=== PATIENT | female | born 1960 | race Caucasian/White ===

== ENCOUNTER 2019-04-17 01:21 | Day surgery (SDC) | payer BC, SELFPAY ==
[2019-04-05 15:59] VITALS: BMI 27.3
[2019-04-17 13:21] VITALS: BP 178/92; PULSE 73; RESP 16; TEMP 36.3; O2SAT 100
--- NOTE | 2019-04-17 13:33 | WPDANESEPPF ---
Anes - Initial Pre Proc Eval Procedure: Operation Date: 04/17/19 14:15 Proposed Procedures p Colonoscopy - Live Hernadez MD Date/Time: 04/17/19 13:33 Surgeon: Live Hernadez MD Pre Op Diagnosis: Positive Colorectal Test Patient Data Age: 58 Gender: F Height: 1.6 m Weight: 71.4 kg Last Vital Signs Temp 36.3 C L 04/17/19 13:21 Pulse 73 04/17/19 13:21 Resp 16 04/17/19 13:21 BP 178/92 H 04/17/19 13:21 Pulse Ox 100 04/17/19 13:21 Allergies Allergy/AdvReac Type Severity Reaction Status Date / Time No Known Allergies Allergy Verified 04/17/19 13:20 Home Medications Medication Instructions Recorded Confirmed Type amlodipine 10 mg PO DAILY 04/05/19 04/05/19 History aspirin [Aspir-81] 81 mg PO DAILY 04/05/19 04/05/19 History losartan 100 mg PO DAILY 04/05/19 04/05/19 History metoprolol tartrate 50 mg PO BID 04/05/19 04/05/19 History vnsdpiqp-sin-svvljit fumarate 9 mg PO DAILY 04/05/19 04/05/19 History [Multi Vitamin] omeprazole 40 mg PO DAILY 04/05/19 04/05/19 History Patient hx anesthesia problems: none Family hx anesthesia problems: none PMFSH Past Medical History Medical History (Updated 04/17/19 @ 13:35 by Loy Flynn MD) CAD (coronary artery disease) Gastroesophageal reflux disease HTN (hypertension) Hypercholesterolemia Surgical History Surgical History (Updated 04/17/19 @ 13:35 by Loy Flynn MD) Hx of cholecystectomy Hx of coronary artery bypass graft x2 08/2018 Hx of tonsillectomy Hx of tubal ligation Family History Family History (Updated 11/01/18 @ 11:01 by DOCTOR UNKNOWN) Mother Cerebrovascular accident Sibling Cerebrovascular accident Grandparent Family history of malignant neoplasm Social History Social History Smoking status: Former smoker Smoking end date: 03/21/18 Anes - Eval Final PreProcedure Day of Procedure 04/17/19 13:33 Patient weight: overweight Heart: regular rate and rhythm Lungs: clear to auscultation and normal air movement Airway: Mallampati scale class II Neurological: alert and oriented Last oral intake: >/= 8 hours ASA classification: III Emergent: no Anesthetic plan: proceed Anesthesia type and monitoring: general GIVS Informed Consent: The patient's anesthetic plan and its attendant risks and benefits were discussed with the patient/family/POA. Questions were solicited and answers provided to the satisfaction of the patient/family/POA.
[2019-04-17] MEDS: LACTATED RINGERS 1,000 ML 150 ML IV CONT (13:38)
--- NOTE | 2019-04-17 15:11 | PM.HPGS ---
History of Present Illness History of Present Illness Consent: Risks, benefits, and alternatives have been discussed and questions answered. Patient agrees to proceed with procedure. Chief complaint: Positive Colorectal Test Narrative: Ciara Finch is a 58 year old female with abnormal cologuard, never had a colonoscopy Review of Systems Constitutional: Constitutional: Denies headache(s) and Denies weakness Eyes: Eyes: Denies blurry vision ENT: Reports Normal hearing present, Denies headache(s) and Denies neck pain Cardiovascular: Cardiovascular: Denies chest pain and Denies dyspnea Respiratory: Respiratory: Denies dyspnea Gastrointestinal: Gastrointestinal: Reports no additional gastrointestinal complaints Genitourinary: Genitourinary: Denies dysuria Musculoskeletal: Musculoskeletal: Denies neck pain Integumentary/Breasts: Skin/Breast: Denies dry skin Neurologic: Reports Normal hearing present, Denies headache(s) and Denies weakness Psychiatric: Psychiatric: Denies anxiety Endocrine: Endocrine: Denies change in body appearance Hematologic/Lymphatic: Hematologic/Lymphatic: Denies easy bleeding Allergic/Immunologic: Allergic/Immunologic: Denies urticaria PMFSH Past Medical History Medical History (Updated 04/17/19 @ 15:12 by Live Hernadez MD) CAD (coronary artery disease) Gastroesophageal reflux disease HTN (hypertension) Hypercholesterolemia Positive colorectal cancer screening using Cologuard test Surgical History Surgical History (Updated 04/17/19 @ 15:12 by Live Hernadez MD) Hx of cholecystectomy Hx of coronary artery bypass graft x2 08/2018 Hx of tonsillectomy Hx of tubal ligation Family History Family History (Updated 11/01/18 @ 11:01 by DOCTOR UNKNOWN) Mother Cerebrovascular accident Sibling Cerebrovascular accident Grandparent Family history of malignant neoplasm Social History Social History Smoking status: Former smoker Smoking end date: 03/21/18 Meds Home Medications and Allergies Home Medications Medication Instructions Recorded Confirmed Type amlodipine 10 mg PO DAILY 04/05/19 04/05/19 History aspirin [Aspir-81] 81 mg PO DAILY 04/05/19 04/05/19 History losartan 100 mg PO DAILY 04/05/19 04/05/19 History metoprolol tartrate 50 mg PO BID 04/05/19 04/05/19 History tvkpjqfw-gdj-yeaotpe fumarate 9 mg PO DAILY 04/05/19 04/05/19 History [Multi Vitamin] omeprazole 40 mg PO DAILY 04/05/19 04/05/19 History Allergies Allergy/AdvReac Type Severity Reaction Status Date / Time No Known Allergies Allergy Verified 04/17/19 13:20 Vital Signs Vital Signs - 24 hr 04/17/19 13:21 Temperature 97.3 F L Pulse Rate 73 Respiratory Rate 16 Blood Pressure 178/92 H Pulse Oximetry 100 Exam Const: General: comfortable and no acute distress HENMT: General nose exam: Normal nares present Eyes: General: appearance normal, both eyes and all related structures Neck: Neck: no JVD Resp: Auscultation: clear to auscultation bilaterally Cardio: Rate: regular rate Rhythm: regular rhythm GI: Inspection: non-distended GI Palp: Yes Soft to palpation Skin: General skin exam: normal color Neuro: General: gait normal Speech: normal speech Extrem: General: normal to inspection Psych: Mental Status: mental status grossly normal Assessment and Plan Assessment and plan (1) Positive colorectal cancer screening using Cologuard test: Code(s): R19.5 - Other fecal abnormalities Status: Acute Assessment and Plan: will proceed with colonoscopy (2) HTN (hypertension): Qualifiers: Hypertension type: essential hypertension Qualified Code(s): I10 - Essential (primary) hypertension Code(s): I10 - Essential (primary) hypertension Status: Acute (3) Hx of coronary artery bypass graft: Code(s): Z95.1 - Presence of aortocoronary bypass graft Status: Acute
[2019-04-17 15:36] VITALS: BP 120/61; PULSE 74; RESP 16; O2SAT 98
[2019-04-17 15:46] VITALS: BP 146/73; PULSE 70; RESP 16; O2SAT 98
[2019-04-17 15:56] VITALS: BP 165/72; PULSE 62; RESP 16; O2SAT 98
== END 2019-04-17 16:16 | disposition home or self-care (01) ==
PROVIDERS: PCP Physician Assistant; Visit Provider Internal Medicine Gastroenterology
PROC: 0DJD8ZZ Inspection of Lower Intestinal Tract, Via Natural or Artificial Opening Endoscopic (ICD-10-PCS; CPT 45378; principal; 2019-04-17 14:15)
DX: Z12.11 Encounter for screening for malignant neoplasm of colon (principal); D12.3 Benign neoplasm of transverse colon; K63.5 Polyp of colon; K57.30 Diverticulosis of large intestine without perforation or abscess without bleeding; K64.8 Other hemorrhoids; R19.5 Other fecal abnormalities; I10 Essential (primary) hypertension; I25.10 Atherosclerotic heart disease of native coronary artery without angina pectoris; E78.00 Pure hypercholesterolemia, unspecified; K21.9 Gastro-esophageal reflux disease without esophagitis; Z95.1 Presence of aortocoronary bypass graft; Z79.82 Long term (current) use of aspirin; Z87.891 Personal history of nicotine dependence
CPT/HCPCS: 45385; 45380; 88305; J2704; J7120

== ENCOUNTER 2019-06-22 13:23 | Outpatient (CLI) | payer BC, SELFPAY ==
--- NOTE | ~2019-06-22 | MMUS_ITS ---
EXAMINATION: MM diagnostic mammo BI, US breast BI complete HISTORY: Subtle right microcalcifications and bilateral breast masses suggested on 04/03/2019 bilatera l screening mammogram TECHNIQUE: Additional 3-D tomosynthesis images of both breasts were performed and synthetic 2-D image s were generated. Magnification views of right breast. CAD analysis was submitted and interpreted. Hi gh resolution breast ultrasound was performed. COMPARISON: None FINDINGS: MAMMOGRAPHIC FINDINGS: Occasional bilateral benign appearing calcifications are noted. No suspicious mass or architectural d istortion of either breast is noted. ULTRASOUND: Right breast: 6:00: 3 x 2.3 x 4.6 mm sonolucency consistent with simple cyst Subareolar right breast: Parallel circumscribed sonolucency measuring up to 4.2 x 7.1 x 13.5 mm, cons istent with simple cyst No suspicious mass or shadowing of the right breast. Left breast: 2:00 2 cm from nipple: 5.1 x 3.8 x 6.0 mm sonolucency with through transmission posterior enhancement compatible with cyst 3:00 3 cm from nipple: 3.9 mm cyst No suspicious mass or shadowing of the left breast. IMPRESSION: 1. Benign findings; no mammographic evidence of malignancy 2. Routine annual mammographic screening is recommended BI-RADS Category 2: Benign finding(s). Reviewed, dictated and finalized at location A. IMPRESSION: 1. Benign findings; no mammographic evidence of malignancy 2. Routine annual mammographic screening is recommended BI-RADS Category 2: Benign finding(s).
== END 2019-06-22 13:24 | disposition home or self-care (01) ==
PROVIDERS: PCP Internal Medicine; Visit Provider Nurse Practitioner
DX: R92.8 Other abnormal and inconclusive findings on diagnostic imaging of breast (principal)
CPT/HCPCS: 76641; 77066

== ENCOUNTER 2019-10-24 09:53 | Outpatient (CLI) | payer BC, SELFPAY ==
[2019-10-24 10:15] LABS: Basophils Absolute Auto 0.1 K/mm3 (0.0-0.1); Basophils Percent Auto 1.3 % (0.2-1.2); Eosinophils Absolute Auto 0.2 K/mm3 (0-0.3); Eosinophils Percent Auto 3.2 % (0-4.4); Hematocrit 37.6 % (37.0-47.0); Immature Granulocyte Absolute 0.02 K/mm3 (0.00-0.031); Immature Granulocyte Percent A 0.3 % (0-0.5); Lymphocytes Absolute Auto 2.69 K/mm3 (0.9-3.2); Lymphocytes Percent Auto 39.1 % (18.3-44.2); Mean Corpuscular HGB Conc 34.6 g/dl (32-36); Mean Corpuscular Hemoglobin 31.9 pg (26-34); Mean Corpuscular Volume 92.2 fl (80-100); Monocytes Absolute Auto 0.5 K/mm3 (0.1-0.6); Monocytes Percent Auto 7.3 % (2.6-8.5); Neutrophils Absolute Auto 3.4 K/mm3 (1.3-6.7); Neutrophils Percent Auto 48.8 % (45.5-73.1); Platelet Count Result 269 k/mm3 (150-375); Red Blood Count 4.08 M/mm3 (4.2-5.4); Red Cell Distribution Width 12.7 % (11.5-14.5); White Blood Count 6.9 K/mm3 (4.5-10.0)
[2019-10-24 10:27] LABS: Alanine Aminotransferase 14 U/L (4-35); Albumin Level 4.3 g/dL (3.5-5.1); Alkaline Phosphatase 57 U/L (38-126); Anion Gap 11.4 mmol/L (7-16); Aspartate Amino Transferase 51 U/L (14-36); Bilirubin,Total 0.5 mg/dL (0.2-1.3); Blood Urea Nitrogen 13 mg/dL (7-17); Calcium 10.4 mg/dL (8.4-10.2); Carbon Dioxide 28 mmol/L (22-30); Chloride 106 mmol/L (98-107); Cholesterol 169 mg/dL (0-200); Estimated Glomerular Filt Rate > 60; Glucose 119 mg/dL (65-105); HDL Direct 33 mg/dL; Potassium 3.4 mmol/L (3.4-5.0); Sodium 142 mmol/L (137-145); Triglycerides 282 mg/dL (<150)
[2019-10-24 10:39] LABS: LDL Cholesterol Direct 84 mg/dL
== END 2019-10-24 09:54 | disposition home or self-care (01) ==
PROVIDERS: PCP Internal Medicine; Visit Provider Clinical Nurse Specialist
DX: E78.00 Pure hypercholesterolemia, unspecified (principal); I10 Essential (primary) hypertension
CPT/HCPCS: 36415; 80053; 80061; 85025

== ENCOUNTER 2019-12-18 11:35 | Outpatient (CLI) | payer BC, SELFPAY ==
[2019-12-18 11:57] LABS: Hemoglobin A1C 5.5 % (<5.7)
[2019-12-18 12:04] LABS: Alanine Aminotransferase 13 U/L (4-35); Albumin Level 4.5 g/dL (3.5-5.1); Alkaline Phosphatase 58 U/L (38-126); Anion Gap 8 mmol/L (8-16); Aspartate Amino Transferase 53 U/L (14-36); Bilirubin,Total 0.3 mg/dL (0.2-1.3); Blood Urea Nitrogen 14 mg/dL (7-17); Calcium 11.1 mg/dL (8.4-10.2); Carbon Dioxide 29 mmol/L (22-30); Chloride 107 mmol/L (98-107); Estimated Glomerular Filt Rate > 60; Glucose 116 mg/dL (65-105); Magnesium 1.8 mg/dL (1.6-2.3); Potassium 4.5 mmol/L (3.4-5.0); Sodium 144 mmol/L (137-145)
== END 2019-12-18 11:36 | disposition home or self-care (01) ==
PROVIDERS: PCP Internal Medicine; Visit Provider Clinical Nurse Specialist
DX: E83.52 Hypercalcemia (principal); R74.8 Abnormal levels of other serum enzymes; R73.09 Other abnormal glucose; E87.6 Hypokalemia
CPT/HCPCS: 36415; 80053; 83036; 83735

== ENCOUNTER 2019-12-20 12:46 | Outpatient (CLI) | payer BC, SELFPAY ==
[2019-12-20 14:22] LABS: Vitamin D 25 Hydroxy 64.4 ng/mL
[2019-12-24 07:23] LABS: Ionized Calcium 5.7 mg/dL (4.8-5.6)
== END 2019-12-20 12:47 | disposition home or self-care (01) ==
LOC: ANHLAB 12:48
PROVIDERS: PCP Internal Medicine; Visit Provider Clinical Nurse Specialist
DX: E83.52 Hypercalcemia (principal)
CPT/HCPCS: 36415; 82306; 82330; 83519

== ENCOUNTER 2020-01-02 14:28 | Outpatient (CLI) | payer BC, SELFPAY ==
[2020-01-02 15:18] LABS: Parathyroid Intact 48.8 pg/mL (7.5-53.5)
== END 2020-01-02 14:29 | disposition home or self-care (01) ==
PROVIDERS: PCP Internal Medicine; Visit Provider Clinical Nurse Specialist
DX: E83.52 Hypercalcemia (principal)
CPT/HCPCS: 36415; 83970

== ENCOUNTER 2020-03-04 09:50 | Outpatient (CLI) | payer BC, SELFPAY ==
[2020-03-04 11:06] LABS: Alanine Aminotransferase 11 U/L (4-35); Albumin Level 4.2 g/dL (3.5-5.1); Alkaline Phosphatase 53 U/L (38-126); Anion Gap 7 mmol/L (8-16); Aspartate Amino Transferase 51 U/L (14-36); Bilirubin,Total 0.5 mg/dL (0.2-1.3); Blood Urea Nitrogen 22 mg/dL (7-17); Calcium 10.3 mg/dL (8.4-10.2); Carbon Dioxide 29 mmol/L (22-30); Chloride 104 mmol/L (98-107); Cholesterol 236 mg/dL (0-200); Estimated Glomerular Filt Rate > 60; Glucose 104 mg/dL (65-105); HDL Direct 30 mg/dL; Potassium 3.9 mmol/L (3.4-5.0); Sodium 140 mmol/L (137-145); Triglycerides 243 mg/dL (<150)
[2020-03-04 11:17] LABS: LDL Cholesterol Direct 148 mg/dL
== END 2020-03-04 09:51 | disposition home or self-care (01) ==
PROVIDERS: PCP Internal Medicine; Visit Provider Clinical Nurse Specialist
DX: I25.708 Atherosclerosis of coronary artery bypass graft(s), unspecified, with other forms of angina pectoris (principal); Z95.1 Presence of aortocoronary bypass graft; Z79.899 Other long term (current) drug therapy; E78.5 Hyperlipidemia, unspecified
CPT/HCPCS: 36415; 80053; 80061

== ENCOUNTER 2020-10-02 12:38 | Outpatient (CLI) | payer BC, SELFPAY ==
[2020-10-02 13:19] LABS: Cholesterol 115 mg/dL (0-200); HDL Direct 39 mg/dL; Triglycerides 218 mg/dL (<150)
[2020-10-02 13:30] LABS: LDL Cholesterol Direct 39 mg/dL
== END 2020-10-02 12:39 | disposition home or self-care (01) ==
LOC: ANHLAB 12:40
PROVIDERS: PCP Internal Medicine; Visit Provider Specialist
DX: I25.708 Atherosclerosis of coronary artery bypass graft(s), unspecified, with other forms of angina pectoris (principal); Z95.1 Presence of aortocoronary bypass graft; Z79.899 Other long term (current) drug therapy
CPT/HCPCS: 36415; 80061

== ENCOUNTER 2020-11-05 13:26 | Outpatient (CLI) | payer BC, SELFPAY ==
[2020-11-05 14:01] LABS: Alanine Aminotransferase 10 U/L (4-35); Albumin Level 4.5 g/dL (3.5-5.1); Alkaline Phosphatase 60 U/L (38-126); Anion Gap 8 mmol/L (8-16); Aspartate Amino Transferase 45 U/L (14-36); Bilirubin,Total 0.3 mg/dL (0.2-1.3); Blood Urea Nitrogen 17 mg/dL (7-17); Calcium 10.9 mg/dL (8.4-10.2); Carbon Dioxide 26 mmol/L (22-30); Chloride 104 mmol/L (98-107); Estimated Glomerular Filt Rate > 60; Glucose 107 mg/dL (65-110); Sodium 138 mmol/L (137-145)
[2020-11-05 14:08] LABS: Hemoglobin A1C 5.7 % (<5.7)
== END 2020-11-05 13:27 | disposition home or self-care (01) ==
PROVIDERS: PCP Internal Medicine; Visit Provider Specialist
DX: Z79.899 Other long term (current) drug therapy (principal)
CPT/HCPCS: 36415; 80053; 83036

== ENCOUNTER 2021-05-15 10:51 | Outpatient (CLI) | payer BC, SELFPAY ==
[2021-05-15 11:08] LABS: Basophils Absolute Auto 0.1 K/mm3 (0.0-0.1); Basophils Percent Auto 1.2 % (0.2-1.2); Eosinophils Absolute Auto 0.4 K/mm3 (0-0.3); Eosinophils Percent Auto 4.1 % (0-4.4); Hematocrit 38.1 % (37.0-47.0); Hemoglobin 12.9 g/dL (12.0-15.0); Immature Granulocyte Absolute 0.02 K/mm3 (0.00-0.031); Immature Granulocyte Percent A 0.2 % (0-0.5); Lymphocytes Absolute Auto 4.01 K/mm3 (0.9-3.2); Lymphocytes Percent Auto 46.8 % (18.3-44.2); Mean Corpuscular HGB Conc 33.9 g/dl (32-36); Mean Corpuscular Hemoglobin 32.1 pg (26-34); Mean Corpuscular Volume 94.8 fl (80-100); Mean Platelet Volume 10.4 fl (7.4-10.4); Monocytes Absolute Auto 0.7 K/mm3 (0.1-0.6); Monocytes Percent Auto 8.5 % (2.6-8.5); Neutrophils Absolute Auto 3.4 K/mm3 (1.3-6.7); Neutrophils Percent Auto 39.2 % (45.5-73.1); Platelet Count Result 278 k/mm3 (150-375); Red Blood Count 4.02 M/mm3 (4.2-5.4); White Blood Count 8.6 K/mm3 (4.5-10.0)
[2021-05-15 11:19] LABS: Alanine Aminotransferase 11 U/L (4-35); Albumin Level 4.4 g/dL (3.5-5.1); Alkaline Phosphatase 66 U/L (38-126); Anion Gap 7 mmol/L (8-16); Aspartate Amino Transferase 46 U/L (14-36); Bilirubin,Total 0.3 mg/dL (0.2-1.3); Blood Urea Nitrogen 18 mg/dL (7-17); Calcium 10.2 mg/dL (8.4-10.2); Carbon Dioxide 24 mmol/L (22-30); Chloride 109 mmol/L (98-107); Estimated Glomerular Filt Rate > 60; Glucose 107 mg/dL (65-110); Potassium 3.8 mmol/L (3.4-5.0); Sodium 140 mmol/L (137-145)
[2021-05-15 12:07] LABS: Atypical Lymphocytes Present; Platelet Estimate Adequate (Adequate)
[2021-05-16 22:30] LABS: Ionized Calcium 5.5 mg/dL (4.8-5.6)
== END 2021-05-15 10:52 | disposition home or self-care (01) ==
LOC: ANHLAB 10:53
PROVIDERS: PCP Internal Medicine; Visit Provider Clinical Nurse Specialist
DX: E83.52 Hypercalcemia (principal); I10 Essential (primary) hypertension
CPT/HCPCS: 36415; 80053; 82330; 83970; 85025

== ENCOUNTER 2021-06-08 15:23 | Outpatient (CLI) | payer BC, SELFPAY ==
[2021-06-08 15:58] LABS: Anion Gap 8 mmol/L (8-16); Blood Urea Nitrogen 26 mg/dL (7-17); Calcium 10.4 mg/dL (8.4-10.2); Carbon Dioxide 22 mmol/L (22-30); Chloride 106 mmol/L (98-107); Estimated Glomerular Filt Rate 57; Glucose 114 mg/dL (65-110); Potassium 3.4 mmol/L (3.4-5.0); Sodium 136 mmol/L (137-145)
== END 2021-06-08 15:24 | disposition home or self-care (01) ==
LOC: ANHLAB 15:25
PROVIDERS: PCP Internal Medicine; Visit Provider Nurse Practitioner Adult Health
DX: I10 Essential (primary) hypertension (principal)
CPT/HCPCS: 36415; 80048

== ENCOUNTER 2021-06-23 09:45 | Outpatient (CLI) | payer BC, SELFPAY ==
[2021-06-23 10:52] LABS: Anion Gap 6 mmol/L (8-16); Blood Urea Nitrogen 15 mg/dL (7-17); Calcium 9.6 mg/dL (8.4-10.2); Carbon Dioxide 30 mmol/L (22-30); Chloride 104 mmol/L (98-107); Estimated Glomerular Filt Rate > 60; Glucose 116 mg/dL (65-110); Potassium 2.7 mmol/L (3.4-5.0); Sodium 140 mmol/L (137-145)
== END 2021-06-23 09:46 | disposition home or self-care (01) ==
LOC: ANHLAB 09:48
PROVIDERS: PCP Internal Medicine; Visit Provider Nurse Practitioner Adult Health
DX: Z95.1 Presence of aortocoronary bypass graft (principal)
CPT/HCPCS: 36415; 80048

== ENCOUNTER 2021-06-30 10:12 | Outpatient (CLI) | payer BC, SELFPAY ==
[2021-06-30 11:10] LABS: Anion Gap 6 mmol/L (8-16); Blood Urea Nitrogen 19 mg/dL (7-17); Calcium 10.1 mg/dL (8.4-10.2); Carbon Dioxide 25 mmol/L (22-30); Chloride 109 mmol/L (98-107); Estimated Glomerular Filt Rate > 60; Glucose 97 mg/dL (65-110); Potassium 4.2 mmol/L (3.4-5.0); Sodium 140 mmol/L (137-145)
== END 2021-06-30 10:13 | disposition home or self-care (01) ==
LOC: ANHLAB 10:16
PROVIDERS: PCP Internal Medicine; Visit Provider Nurse Practitioner Adult Health
DX: E87.6 Hypokalemia (principal)
CPT/HCPCS: 36415; 80048

== ENCOUNTER 2022-09-22 09:19 | Outpatient (CLI) | payer BC, SELFPAY ==
--- NOTE | 2022-10-18 10:51 | WPDSLEEPSTUD ---
Sleep Study Date of Study: 09/22/22 Ordering Provider: CHERELLE Minor Interpreting Physician: Alda Dillon MD Sleep Study Type: Split Polysomnogram Height: 1.61 m Weight: 58.06 kg Body Mass Index: 22.3 Neck Circumference (inches): 12 [place]: 13 Reason for Sleep Study Hypersomnolence Sleep History Ciara Finch is a 62-year-old female with hypertension and history of coronary artery disease with a history of bypass surgery x 2 vessels in 2019. She complains of having no energy and poor memory. She has difficulty falling asleep and staying asleep. She wakes up in the academic physician hours. She does not awaken from sleep feeling short of breath. She rarely awakens while asleep with heartburn, belching or coughing. She always snores, and it is always loud enough that others complain about it. She frequently has difficulty sleeping with a cold. She rarely wakes up gasping for breath at night. She rarely has breathing problems at night observed by others. She always sweats excessively at night. She occasionally notices her heart pounding or beating irregularly at night. She occasionally falls asleep during the day, occasionally falls asleep involuntarily. She rarely falls asleep while driving. She does not have loss of muscle tone with strong emotion. She frequently has daytime difficulties due to excessive sleepiness. She does not feel paralyzed on waking or falling asleep. She does not have vivid dreamlike scenes on waking or falling asleep. She does not feel afraid to go to sleep. She does not have nightmares. She does not remember her dreams. She always has racing thoughts. She occasionally feels sad or depressed. She occasionally has anxiety. She rarely has muscular tension. She occasionally notices parts of her body jerking. She does not kick during the night. She occasionally has crawling and aching feelings in her legs. She occasionally has leg pain at night. She does not have morning jaw pain. She does not grind her teeth at night. She rarely is bothered by pain during the day, rarely awakened by pain at night. She occasionally wakes up feeling stiff in the morning, occasionally wakes up with sore or achy muscles, occasionally wakes up with pain in the neck and spine. She has insomnia, memory problems and sexual problems. Normal bedtime is 9:00 a.m., taking a variable amount of time to go to sleep. She wakes several times while asleep. These awakenings may last for a few seconds or minutes. During this time she rolls over tries to reposition. Her normal wake time is 2:30 p.m.. On her weekends, her bedtime is 11:30 a.m. and her wake time is 4:30 p.m.. She has numerous responsibilities even on her days off. 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 She takes naps in the afternoon or evening. A short mouth lasting 10 or 15 minutes may be refreshing. She is usually drowsy for 1 hour after waking. She feels better in the evening compared to other times of day. Habits: tobacco half pack per day. Caffeine, 2 servings a day. No alcohol, no recreational substances. PMFSH Past Medical History Medical History CAD (coronary artery disease) Gastroesophageal reflux disease Heart attack HTN (hypertension) Hypercholesterolemia Positive colorectal cancer screening using Cologuard test Surgical History Surgical History Hx of cholecystectomy Hx of coronary artery bypass graft x2 08/2018 Hx of tonsillectomy Hx of tubal ligation Family History Family History Mother Cerebrovascular accident Afib Sibling Cerebrovascular accident Pancreatic cancer Grandparent Family history of malignant neoplasm Father Heart attack Grandparent Aneurysm Social History Social History Smoking
[2022-10-18 11:31] VITALS: BMI 22.3
== END 2022-09-23 07:48 | disposition home or self-care (01) ==
LOC: ANHCSM 09:19
PROVIDERS: PCP Internal Medicine; Visit Provider Clinical Nurse Specialist
DX: G47.33 Obstructive sleep apnea (adult) (pediatric) (principal); G47.10 Hypersomnia, unspecified; I25.10 Atherosclerotic heart disease of native coronary artery without angina pectoris; K21.9 Gastro-esophageal reflux disease without esophagitis; I10 Essential (primary) hypertension; E78.00 Pure hypercholesterolemia, unspecified; F17.210 Nicotine dependence, cigarettes, uncomplicated
CPT/HCPCS: 95811

== ENCOUNTER 2022-09-27 11:34 | Outpatient (CLI) | payer BC, SELFPAY ==
[2022-09-27 12:33] LABS: LDL Cholesterol Direct 132 mg/dL
[2022-09-27 12:41] LABS: Basophils Absolute Auto 0.1 K/mm3 (0.0-0.1); Basophils Percent Auto 1.1 % (0.2-1.2); Eosinophils Absolute Auto 0.3 K/mm3 (0-0.3); Eosinophils Percent Auto 3.4 % (0-4.4); Hematocrit 39.9 % (37.0-47.0); Hemoglobin 13.6 g/dL (12.0-15.0); Immature Granulocyte Absolute 0.01 K/mm3 (0.00-0.031); Immature Granulocyte Percent A 0.1 % (0-0.5); Lymphocytes Absolute Auto 2.55 K/mm3 (0.9-3.2); Lymphocytes Percent Auto 31.8 % (18.3-44.2); Mean Corpuscular HGB Conc 34.1 g/dl (32-36); Mean Corpuscular Hemoglobin 31.9 pg (26-34); Mean Corpuscular Volume 93.4 fl (80-100); Mean Platelet Volume 11.2 fl (7.4-10.4); Monocytes Absolute Auto 0.5 K/mm3 (0.1-0.6); Monocytes Percent Auto 5.9 % (2.6-8.5); Neutrophils Absolute Auto 4.6 K/mm3 (1.3-6.7); Neutrophils Percent Auto 57.7 % (45.5-73.1); Platelet Count Result 288 k/mm3 (150-375); Red Blood Count 4.27 M/mm3 (4.2-5.4); Red Cell Distribution Width 12.6 % (11.5-14.5)
[2022-09-27 12:43] LABS: Vitamin D 25 Hydroxy 73.1 ng/mL
[2022-09-27 12:51] LABS: Thyroid Stimulating Hormone 0.717 uIU/mL (0.465-4.680)
[2022-09-27 12:53] LABS: Alanine Aminotransferase 16 U/L (6-35); Albumin Level 4.4 g/dL (3.5-5.1); Alkaline Phosphatase 58 U/L (38-126); Anion Gap 5 mmol/L (8-16); Aspartate Amino Transferase 47 U/L (14-36); Bilirubin,Total 0.5 mg/dL (0.2-1.3); Blood Urea Nitrogen 13 mg/dL (7-17); Calcium 10.1 mg/dL (8.4-10.2); Carbon Dioxide 32 mmol/L (22-30); Chloride 103 mmol/L (98-107); Cholesterol 227 mg/dL (0-200); Estimated Glomerular Filt Rate > 60; Glucose 111 mg/dL (65-110); HDL Direct 32 mg/dL; Potassium 2.6 mmol/L (3.4-5.0); Sodium 140 mmol/L (137-145); Triglycerides 219 mg/dL (<150)
== END 2022-09-27 11:35 | disposition home or self-care (01) ==
LOC: ANHLAB 11:36
PROVIDERS: PCP Internal Medicine; Visit Provider Clinical Nurse Specialist
DX: E55.9 Vitamin D deficiency, unspecified (principal); E78.00 Pure hypercholesterolemia, unspecified; I10 Essential (primary) hypertension; I25.10 Atherosclerotic heart disease of native coronary artery without angina pectoris
CPT/HCPCS: 36415; 80053; 80061; 82306; 84443; 85025

== ENCOUNTER 2022-09-30 10:38 | Outpatient (CLI) | payer BC, SELFPAY ==
[2022-09-30 11:14] LABS: Anion Gap 8 mmol/L (8-16); Blood Urea Nitrogen 10 mg/dL (7-17); Calcium 10.1 mg/dL (8.4-10.2); Carbon Dioxide 27 mmol/L (22-30); Chloride 106 mmol/L (98-107); Estimated Glomerular Filt Rate > 60; Glucose 112 mg/dL (65-110); Sodium 141 mmol/L (137-145)
[2022-09-30 11:16] LABS: Magnesium 1.2 mg/dL (1.6-2.3)
== END 2022-09-30 10:39 | disposition home or self-care (01) ==
LOC: ANHLAB 10:40
PROVIDERS: PCP Internal Medicine; Visit Provider Clinical Nurse Specialist
DX: E87.6 Hypokalemia (principal)
CPT/HCPCS: 36415; 80048; 83735

== ENCOUNTER 2022-10-08 10:56 | Outpatient (CLI) | payer BC, SELFPAY ==
[2022-10-08 11:51] LABS: Magnesium 1.6 mg/dL (1.6-2.3)
== END 2022-10-08 10:57 | disposition home or self-care (01) ==
LOC: ANHLAB 10:57
PROVIDERS: PCP Internal Medicine; Visit Provider Clinical Nurse Specialist
DX: E87.6 Hypokalemia (principal)
CPT/HCPCS: 36415; 83735

== ENCOUNTER 2022-11-16 10:55 | Outpatient (CLI) | payer BC, SELFPAY ==
[2022-11-16 11:36] LABS: Anion Gap 8 mmol/L (8-16); Blood Urea Nitrogen 14 mg/dL (7-17); Carbon Dioxide 27 mmol/L (22-30); Chloride 105 mmol/L (98-107); Estimated Glomerular Filt Rate > 60; Glucose 103 mg/dL (65-110); Magnesium 1.8 mg/dL (1.6-2.3); Potassium 3.6 mmol/L (3.4-5.0); Sodium 140 mmol/L (137-145)
== END 2022-11-16 10:56 | disposition home or self-care (01) ==
PROVIDERS: PCP Internal Medicine; Visit Provider Clinical Nurse Specialist
DX: E87.6 Hypokalemia (principal)
CPT/HCPCS: 36415; 80048; 83735

== ENCOUNTER 2024-08-08 11:25 | Outpatient (CLI) | payer BC, SELFPAY ==
--- OUTSIDE RECORDS SUMMARY | 2024-08-08 11:51 | XMS_ITS | Referral Summary ---
Author Organization [facility] [address] [facility] Address [address] [place] [address] Care Team Providers Care Electrical Line Splicer Name Role Phone Vivian Pires NP Primary Care Provider [phone] Allergies Active Allergy Reactions Criticality Noted Date Comments Codeine Nausea only Low 07/24/2019 Sgcapmv-Lxu-Icj Reductase Inhibitors Muscle pain,Dizziness Medium 03/27/2020 Atorvastatin 40 mg and rosuvastatin 5 mg. Medications aspirin 81 mg enteric coated tabletIndication s:acute myocardial infarction Take 1 tablet (81 mg total) by mouth daily 30 tablet 11 9 Active losartan (COZAAR) 100 mg tabletIndication s:hypertension Take 1 tablet (100 mg total) by mouth daily Active omeprazole (PriLOSEC) 20 mg capsule Take 2 capsules (40 mg total) by mouth daily Active multivitamin capsule Take 1 capsule by mouth daily Active vitamin B complex capsule Take 1 capsule by mouth daily Active hydroCHLOROthiaz arnav (HYDRODIURIL) 25 mg tabletIndication s:Uncontrolled hypertension Take 0.5 tablets (12.5 mg total) by mouth daily 30 tablet 11 2 Active evolocumab (Repatha Pushtronex) 420 mg/3.5 mL wearable injector Inject 420 mg under the skin every 30 (thirty) days 3.5 mL 2 Active Additional Information Patient not taking.Reported on 04/25/2023 amLODIPine (NORVASC) 5 mg tablet Take 1 tablet by mouth once daily 30 tablet 5 3 Active metoprolol (LOPRESSOR) 100 mg tablet Take 1 tablet (100 mg total) by mouth daily 60 tablet 5 3 Active potassium chloride ER 20 mEq CR tablet Take 1 tablet (20 mEq total) by mouth daily 3 Active magnesium oxide 400 mg magnesium capsule Take 800 mg by mouth daily Active Active Problems Problem Noted Date Diagnosed Date Presence of aortocoronary bypass graft 0 Coronary artery disease of n ative heart with stable angina pectoris 09/12/2018 Overview (09/12/2018): Added automatically from request for surgery [id number] Social History Tobacco Use Types Packs/Day Years Used Date Smoking Tobacco: Every Day Cigarettes Smokeless Tobacco: Never Tobacco Cessation:Ready to Q uit: Not Asked; Counseling Given: Not Answered Comments:quit 2018 Alcohol Use Standard Drinks/Week Comments Not Currently 0 (1 standard drink = 0.6 oz pur e alcohol) Comments Unknown Sex and Gender Information Value Date Recorded Sex Assigned at Not on file Legal Sex Female 4:08 PM [employer] Gender Identity Not on file Sexual Orientation Not on file Last Filed Vital Signs Vital Sign Reading Time Taken Comments Blood Pressure 152/80 06/23/2023 9:54 AM CDT Pulse 90 06/23/2023 9:54 AM CDT Temperature 36.6 C (97.9 F) 10/26/2018 10:56 AM CDT Respiratory Rate 14 10/26/2018 10:56 AM CDT Oxygen Saturation 98% 06/23/2023 9:54 AM CDT Inhaled Oxygen Concentration - - Weight 58.5 kg (129 lb) 06/23/2023 9:54 AM CDT Height 160 cm (5' 3 ) 06/23/2023 9:54 AM CDT Body Mass Index 22.85 06/23/2023 9:54 AM CDT Plan of Treatment Not on file Insurance [facility] ACCESS ANTHEM TRADITIONAL ANTHEM ACCESS Advance Directives For more information, please contact: [phone] * Full Code (Latest Code Status on File) Date Activated Date Inactivated Comments 09/13/2018 4:21 PM 09/19/2018 6:07 PM * Full Code Date Activated Date Inactivated Comments 09/12/2018 6:53 PM 09/13/2018 4:20 PM Care Teams Electrical Line Splicer Relationship Specialty Start Date End Date Vivian Pires, CHEST PAINTING [employer] SEALING SUPERVISOR PCP - General Nurse Practitioner 05/03/19
--- OUTSIDE RECORDS SUMMARY | 2024-08-08 11:51 | XMS_ITS | CONTINUITY OF CARE DOCUMENT ---
Author Name niltoncelia niltoncelia Address Unknown Organization [facility] Address [address] [place] [address] Phone [phone] Care Team Providers Care Correctional Officer Name Role Phone Gurpreet Treviño MD Unavailable [phone] Gurpreet Treviño MD Unavailable [phone] YOLANDA AMATO DO Unavailable PROBLEMS Condition Status Date Provider Notes Hyperglycemia active Kayode Bermudez Carotid bruit active Gurpreet Treviño MD Tobacco use, quit active Gurpreet Treviño MD Dyslipidemia active Kayode Bermudez HTN essential active Gurpreet Treviño MD CAD s/p CABG 08/2018 UGARTE > LAD, Radial > OM active 201 11/26/23 Gurpreet Treivño MD Family History of CVA or Stroke: active ? Moh christiano Trevñio MD ENCOUNTERS Date Type Provider Location Encounter Diag nosis - In-person encounter Office Visit Gurpreet Treviño MD [place] [facility] DyslipidemiaHyperglycemia - In-person encounter Office Visit Gurpreet Treviño MD [place] [facility] Carotid bruit - In-person encounter Office Visit Gurpreet Treviño MD [place] [facility] Family History of CVA or Stroke:CAD s/p CABG 08/2018 UGARTE > LAD, Radial > OMHTN essentialDyslipidemiaTobacco use, quit VITAL SIGNS Date Observation Value Provider Body Mass Index (Ratio) 28.16 kg/m2 Luzma Treviño MD blood pressure, cuff size regular Cy ann Wilson blood pressure, diastolic 78 mm[Hg] Heriberto Wilson blood pressure, systolic 140 mm[Hg] Aracelis Wilson oxygen saturation, oximetry 98 % Sammie Wilson respiratory rate E&M 16 /min Sammie Wilson pulse rate 101 /min Sammie cash weight E&M 159 [lb_av] Sammie cash height E&M 63 [in_i] Sammie cash Body Mass Index (Ratio) 26.57 kg/m2 Luzma Treviño MD blood pressure, cuff size regular Cy ann Wilson blood pressure, diastolic 80 mm[Hg] Heriberto Wilson blood pressure, systolic 150 mm[Hg] Aracelis Wilson oxygen saturation, oximetry 98 % Sammie Wilson respiratory rate E&M 16 /min Sammie Wilson pulse rate 84 /min Sammie cash weight E&M 150 [lb_av] Sammie Vazquez l height E&M 63 [in_i] Sammie Vazquez l Body Mass Index (Ratio) 25.51 kg/m2 Luzma Treviño MD blood pressure, resting Yes [place] ramsay O'Manjeet blood pressure, diastolic 90 mm[Hg] Ma katelynha O'Manjeet blood pressure, systolic 160 mm[Hg] Greer rowe O'Manjeet oxygen saturation, oximetry 99 % Vonda O'Manjeet respiratory rate E&M 16 /min Vonda O'Manjeet pulse rate 90 /min Vonda O'Manjeet weight E&M 144 [lb_av] Vonda O'Manjeet height E&M 63 [in_i] Vonda O'Manjeet ALLERGIES No Known Drug Allergies RESULTS Date Observation Value Provider Reference Range Interpretation Location 9 pro brain natriuretic peptide 253 pg/mL [facility] 0-287 8 free thyroxine index 2.0 [facility] 1.2-4.9 8 triiodothyronine resin uptake 26 % [facility] 24-39 8 thyroxine, serum, total 7.8 ug/dL [facility] 4.5-12.0 8 thyroid stimulating hormone, serum 0.684 u[IU]/mL [facility] 0.450-4.500 8 hemoglobin A1C, blood, as % of total hemoglobin 6.2 % [facility] 4.8-5.6 High 8 lipoprotein, beta, serum, point, quantitative, calculated 150 mg/dL [facility] 0-99 High 8 very low density lipoproteins 65 mg/dL [facility] 5-40 High 8 HDL cholesterol, serum 36 mg/dL [facility] >39 Low 8 triglyceride, serum, random 325 mg/dL [facility] 0-149 High 8 cholesterol, serum 251 mg/dL [facility] 100-199 High 8 platelet count 331 X10E3/UL [facility] 109-015 3828/11/2 8 red blood cell distribution width 14.6 % [facility] 12.3-15.4 8 mean corpuscular hemoglobin concentration, RBC 32.7 G/DL [facility] 31.5-35.7 8 mean corpuscular hemoglobin, RBC 28.9 pg [facility] 26.6-33.0 8 mean corpuscular volume, RBC 88 fL [facility] 79-97 8 hematocrit, blood 38.2 % [facility] 34.0-46.6 8 hemoglobin, blood 12.5 g/dL [facility] 11.1-15.9 8 erythrocyte (RBC) count 4.33 X10E6/UL [facility] 3.77-5.28 8 leukocyte count, blood 5.1 X10E3/UL [facility] 3.4-10.8 8 alanine aminotransferase (SGPT), serum 12 1/L [facility] 0-32 8 aspartate aminotransferase (SGOT), serum 41 1/L [facility] 0-40 High 8 alkaline phosphatase, serum 88 1/L [facility] 39-117 8 bilirubin, serum, total 0.4 mg/dL [facility] 0.0-1.2 8 albumin/globulin ratio, serum 2.0 [facility] 1.2-2.2 8 globulin, serum 2.3 [facility] 1.5-4.5 8 albumin, serum 4.5 g/dL [facility] 3.5-5.5 8 protein, total, serum 6.8 g/dL [facility] 6.0-8.5 8 calcium, serum 10.3 mg/dL [facility] 8.7-10.2 High 8 carbon dioxide, venous blood 19 mmol/L [facility] 20-29 Low 8 chloride, serum 106 mmol/L [facility] 96-106 8 potassium, serum 3.7 mmol/L [facility] 3.5-5.2 8 sodium, serum 142 mmol/L [facility] 719-312 3921/11/2 8 urea nitrogen/creatinine ratio, serum 16 [facility] 9-23 8 eGFR if 74 mL/min/{1 .73_m2} [facility] >59 8 eGFR if not 64 mL/min/{1 .73_m2} [facility] >59 8 creatinine, serum 0.98 mg/dL [facility] 0.57-1.00 8 urea nitrogen, blood 16 mg/dL [facility] 6-24 8 blood glucose, random 130 mg/dL [facility] 65-99 High HISTORY OF MEDICATION USE Medication Status Instructions Dates Provider Indications Com ments VASCEPA 1 GM ORAL CAPSULE completed two pills twcie a day - Jen Haque RN ZETIA 10 MG ORAL TABLET active ONE TAB. DAILY Dwight Galvez MD HYDROCODONE-KIZZY TAMINOPHEN 7.5-325 MG ORAL TABLET completed TAke 1 tab every 8 hours as needed - Sammie Steve PLAVIX 75 MG ORAL TABLET completed ONE TAB. DAILY - Gurpreet Treviño MD COLACE 100 MG ORAL CAPSULE active one cap once daily Vonda O'Manjeet METOPROLOL TARTRATE 50 MG ORAL TABLET active one tab. twice daily Vonda O'Manjeet LIPITOR 40 MG ORAL TABLET completed ONE TAB. DAILY - Gurpreet Treviño MD ASPIRIN ADULT LOW DOSE 81 MG ORAL TABLET DELAYED RELEASE active One Tab By Mouth Daily Vonda O'Manjeet AMLODIPINE BESYLATE 10 MG ORAL TABLET active one tab by mouth daily Gurpreet Treviño MD SOCIAL HISTORY Date Observation Value Provider social history E&M S moking History: Damien nicole is a former smoker. Gurpreet Treviño MD social history reviewed E&M revi ewed - no changes required Gurpreet Treviño MD smoking, year quit 2018 Sammie maher number of years as a smoker 40 a Sammie Steve smoking history, total pack/day 1 Sammie Wilson cigarette use yes Sammie aguilar smoking status Former smoker Sammie Natanael lopez social history E&M S moking History: Damien nicole is a former smoker. Gurpreet Treviño MD social history reviewed E&M revi ewed - no changes required Gurpreet Treviño MD smoking, year quit 2018 Sammie mahre number of years as a smoker 40 a Sammie Steve smoking history, total pack/day 1 Sammie Wilson cigarette use yes Sammie aguilar smoking status Former smoker Sammie lopez number of grandchildren Gurpreet Treviño MD social history E&M S moking History: Damien nicole is a former smoker. Gurpreet Treviño MD social history reviewed E&M revi ewed - no changes required Gurpreet Treviño MD number of years as a smoker 40 a Vonda Anderson smoking history, total pack/day 1 Vonda Anderson smoking, year quit 2018 Vonda Burroughs cigarette use yes Vonda Anderson smoking status Former smoker Vonda Adore l FUNCTIONAL STATUS Date Observation Value Provider HRA, CV Assess/Plan, Angina (inactive) Management Plan continue current therapy Gurpreet Treviño MD HRA, CV Assess/Plan, Angina (inactive) Management Plan continue current therapy Gurpreet Treviño MD HRA, CV Assess/Plan, Angina (inactive) Management Plan continue current therapy Gurpreet Treviño MD FAMILY HISTORY Family Member Condition Mother Family History of CV A or Stroke: Father Family History of Co ronary Artery Disease: INSURANCE PROVIDERS Payer name Policy type / Coverage type [place] red libertarian ID [facility] [id number] ADVANCE DIRECTIVES Name Date DISCUSSED - NO DECISION MADE TREATMENT PLAN Date Name Performer Cardiology follow up :The A1c today was elevated at 6.2%. Advise reduced intake of carbohydrates and sugars. Gurpreet Treviño MD Cardiology follow up :Recent carotid doppler with <50% stenosis bilaterally. The patient has been reassured. Gurpreet Treviño MD Cardiology follow up :She has discontinued the Lipitor due to severe muscle cramps. I did discuss with her the importance of reduced lipid levels for prevention of further heart disease. She verbalized understanding. We aim for an LDL <70. The lipid panel today shows an LDL of 150. Her triglycerides were also elevated over 300 and she will benefit from Vascepa. Gurpreet Treviño MD Cardiology follow up :Blood pressure elevated in the office but patient reports home blood pressure typically around 130/80. No changes to antihypertensives made. Strongly advised to reduce sodium intake and continue monitoring blood pressure and to call our office if consistently elevated over 130/80. Kayode Tillmanmigue Cardiology follow up :Denies of any chest pain or shortness of breath. She continues on Aspirin. Will discontinue Plavix when her present supply runs out. Kayode Lara Cardiology follow up :Audible right carotid bruit. Will arrange carotid doppler. Gurpreet Treviño MD Cardiology follow up :Continues on Lipitor 40m daily. We aim for an LDL < 70. She will benefit from a lipid panel. Gurpreet Treviño MD Cardiology follow up :Blood pressure elevated. Will increase Amlodipine to 10mg daily. She continues on Metoprolol. Gurpreet Treviño MD Cardiology follow up :Musculoskeletal chest pains persist. She continues on Aspirin and Plavix. I have given her one prescription of Hydrocodone as she remains symptomatic with chest wall pain. Advised her if the pain persists she will need to follow up with your office or pain management as this is the only prescription I will give her. Gurpreet Treviño MD Cardiology:Recently stopped smoking. Continued cessation advised. Gurpreet Treviño MD Cardiology:Continues on Atorvastatin. She will benefit from a repeat lipid panel at her next visit. Gurpreet Treviño MD Cardiology:Blood pre ssure elevated in office today, likely related to pain. Her home blood pressure log showed satisfactory control. She continues on Amlodipine and Metoprolol. Gurpreet Treviño MD Cardiology:s/p recen t CABG with UGARTE to LAD and Radial to OM. The midline incision is healed. The musculoskeletal chest pain persits. Gurpreet Treviño MD Date Name HEMOGLOBIN A1c CBC (H/H, RBC, INDIC ES, WBC, PLT) PROBNP, N TERMINAL THYROID PANEL WITH T SH, 3RD GENERATION LIPID PANEL COMPREHENSIVE METABO LIC PANEL, W/EGFR Carotid Duplex Bilat eral HISTORY OF PROCEDURES Procedure Date Procedure Name Provider Procedure Notes S tatus EKG Gurpreet Treviño MD complet ed EKG Gurpreet Treviño MD complet ed EKG Gurpreet Treviño MD complet ed
--- OUTSIDE RECORDS SUMMARY | 2024-08-08 11:51 | XMS_ITS | Clinical Summary ---
Author Organization [facility] [address] Address [address] [place] [address] Care Team Providers Care Power Sweeper Operator Name Role Phone Vivian Pires NP Primary Care Provider [phone] Allergies Active Allergy Reactions Criticality Noted Date Comments Codeine Nausea only Low 07/24/2019 Fyayeen-Ekv-Anj Reductase Inhibitors Muscle pain,Dizziness Medium 03/27/2020 Atorvastatin [...] (09/12/2018): Added automatically from request for surgery [id number] Surgical History Surgery Date Site/Laterality Comments TUBAL LIGATION TONSILLECTOMY CHOLECYSTECTOMY Medical History Medical History Date Comments Hx of CABG Family History Relation Name Status Comments Father myocardial infa ction Mother stroke Social History Tobacco Use Types Packs/Day Years [...] on file 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 Gender Identity Not on file Sexual Orientation Not on file Obstetrics History Last Filed Vital Signs Vital Sign Reading [...] 06/23/2023 9:54 AM CDT Plan of Treatment Health Maintenance Due Date Last Done Comments Breast Cancer Screening-Mammogram 1960 Cervical Cancer Screening 1960 Colon Cancer Screening-Colonoscopy 1960 Depression Screening 1960 Hepatitis C Screening 1960 DTaP/Tdap/Td Vaccine (1 - Tdap) 09/22/1971 Hepatitis B Screening 1978 Regular Well Visit/Exam 18-64 1978 Pneumococcal vaccine <65 (1 of 2 - PCV) 09/22/1979 Zoster Vaccine (1 of 2) 2010 Influenza Vaccine (Season Ended) 2024 05/18/19 17 Insurance [employer] TRADITIONAL ANTHEM ACCESS Advance Directives For more information, please contact: [phone] * Full Code (Latest Code Status on File) Date Activated Date Inactivated Comments 09/13/2018 4:21 PM 09/19/2018 6:07 PM * Full Code Date Activated Date Inactivated Comments 09/12/2018 6:53 PM 09/13/2018 4:20 PM Care Teams Power Sweeper Operator Relationship Specialty Start Date End Date Vivian Pires NP PCP - General Nurse Practitioner 05/03/19
[2024-08-08 16:04] LABS: Kit Draw Collected
== END 2024-08-08 11:26 | disposition home or self-care (01) ==
LOC: ANHGOSHLAB 11:26
PROVIDERS: PCP Internal Medicine; Visit Provider Clinical Nurse Specialist
DX: E83.52 Hypercalcemia (principal); I10 Essential (primary) hypertension; K21.9 Gastro-esophageal reflux disease without esophagitis; Z72.0 Tobacco use; R74.8 Abnormal levels of other serum enzymes; R73.01 Impaired fasting glucose; E78.00 Pure hypercholesterolemia, unspecified; I25.10 Atherosclerotic heart disease of native coronary artery without angina pectoris
CPT/HCPCS: 36415

== ENCOUNTER 2024-08-10 13:39 | Outpatient (CLI) | payer BC, SELFPAY ==
--- OUTSIDE RECORDS SUMMARY | 2024-08-10 13:41 | XMS_ITS | CONTINUITY OF CARE DOCUMENT ---
Author Name niltoncelia niltoncelia Address Unknown Organization [facility] Address [address] [place] [address] Phone [phone] Care Team Providers Care [place] Farm Worker Name Role Phone Gurpreet Treviño MD Unavailable Gurpreet Treviño MD Unavailable [phone] YOLANDA AMATO DO Unavailable PROBLEMS Condition Status Date Provider Notes Family History of CVA or Stroke: active ? [facility] [place] Treviño MD CAD s/p CABG 08/2018 UGARTE > LAD, Radial > OM active 201 11/26/23 Gurpreet Treviño MD HTN essential active Gurpreet Treviño MD Dyslipidemia active Kayode Kyte Tobacco use, quit active Gurpreet Treviño MD Carotid bruit active Gurpreet Treviño MD Hyperglycemia active Kayode Kyte ENCOUNTERS Date Type Provider Location Encounter Diag nosis - In-person encounter Office Visit Gurpreet Treviño MD [place] [facility] DyslipidemiaHyperglycemia - In-person encounter Office Visit Gurpreet Treviño MD [place] [facility] Carotid bruit - In-person encounter Office Visit Gurpreet Treviño MD [place] [facility] Family History of CVA or Stroke:CAD [...] Luzma Treviño MD blood pressure, resting Yes [place] ramsay O'Manjeet blood pressure, diastolic 90 mm[Hg] [...] High 8 platelet count 331 X10E3/UL [facility] 873-107 9959/11/2 8 red blood cell distribution width 14.6 [...] 3.5-5.2 8 sodium, serum 142 mmol/L [facility] [phone]/11/2 8 urea nitrogen/creatinine ratio, serum 16 [facility] [...] Payer name Policy type / Coverage type [place] red libertarian ID [facility] [id number] ADVANCE DIRECTIVES Name Date DISCUSSED - NO [...]
--- OUTSIDE RECORDS SUMMARY | 2024-08-10 13:41 | XMS_ITS | Referral Summary ---
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 Gender Identity Not on file Sexual Orientation [...] Plan of Treatment Not on file Insurance COUNT INCLUDES THE [facility] ACCESS ANTHEM TRADITIONAL ANTHEM ACCESS Advance Directives For more information, please contact: [phone] * Full Code (Latest Code Status on File) Date Activated Date Inactivated Comments 09/13/2018 4:21 PM 09/19/2018 6:07 PM * Full Code Date Activated Date Inactivated Comments 09/12/2018 6:53 PM 09/13/2018 4:20 PM Care Teams Manuscripts Archivist Relationship Specialty Start Date End Date Vivian Pires, ARTISTIC ASSOCIATE PCP - General Nurse Practitioner 05/03/19
--- OUTSIDE RECORDS SUMMARY | 2024-08-10 13:41 | XMS_ITS | Clinical Summary ---
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
--- OUTSIDE RECORDS SUMMARY | 2024-08-10 13:42 | XMS_ITS | Data Portability ---
[facility] Address [address] [place] [address] Assessment No assessment recorded. Plan of Treatment Reminders Order Date Submit Date Provider Last Modified By Organization Details Last Modified Time Details Appointments None recorded . Lab None recorded . Referral None recorded . Procedures None recorded . Surgeries None recorded . Imaging None recorded . Medication Orders loratadi ne 10 mg tablet 2019 020 INTERFACE [facility], [address] [place] [address], [id number], 0 10:01:47 fluticas one propiona te 50 mcg/actu ation nasal spray,mckeon spension 2019 020 INTERFACE [facility], [address] [place] [address], [id number], 0 10:01:46 ciproflo xacin 500 mg tablet 2019 020 INTERFACE [facility], [address] [place], [address], 0 12:52:25 amlodipi ne 10 mg tablet 2019 020 INTERFACE [facility], [address] [place], [address], 0 10:14:45 losartan 100 mg tablet 2019 020 INTERFACE [facility] [address], [address] [place] [address], [address], 0 10:14:56 metoprol ol tartrate 100 mg tablet 2019 020 INTERFACE [facility], [address] [place] [address], [address], 0 10:14:48 Pennsaid 20 mg/gram/ actuatio n (2 %) topical soln in metered- dose pump 2019 INTERFACE [facility], [address] [place] [address], [id number], 0 10:13:18 cycloben zaprine 10 mg tablet 2019 020 INTERFACE [facility], [address] [place] [address], [address], 0 10:14:50 amlodipi ne 10 mg tablet 2019 020 INTERFACE [facility] [address], [address] [place] [address], [address], 0 10:22:16 losartan 100 mg tablet 2019 020 INTERFACE [facility], [address] [place] [address], [address], 0 10:22:22 cycloben zaprine 10 mg tablet 2019 020 INTERFACE [facility] [address], [address] [place] [address], [address], 0 10:25:48 fluconaz ole 150 mg tablet 2019 020 INTERFACE [facility] 176, [address] [place] [address], [address], 0 10:22:19 amlodipi ne 10 mg tablet 2018 019 INTERFACE [facility], [address] [place] [address], [address], 9 11:44:36 losartan 100 mg tablet 2018 019 [facility] [address], [address] [place] [address], [address], 9 11:43:38 metoprol ol tartrate 50 mg tablet 2018 019 [facility] [address], [address] [place] [address], [address], 0 10:07:12 predniso ne 20 mg tablet 2018 019 [facility] [address], [address] [place] [address], [address], 0 09:54:41 Patient TargetsNo targets recorded. Patient Instructions Encounter Date Encounter Id Patient Instructions Last Modified By Organization Details Last Modified Time 07/10/2019 [id number] she's taking [facility]'s otc omeprazole right now ..... Reminded her to avoid the spicy , tomato-based foods ... She sais she has had a colonsocopy .... [email or web address] Not available 07/10/2019 10:28:51 Reason for Referral None Reported. Results Created Date Observation Date Name Description Value Unit Range Abnormal Flag Note LastModifiedBy Organization Detail LastModifiedTime 05/04/19 24 05/03/2023 , maximilian kramer id arter y No observ ation record ed. [email or web address] [facility] [address], [place], [address], 05/04/2023 11:18:58 Result Notes None recorded. Problems Name Problem SNOMED Code Status Onset Date Resolution Date Notes Provider Name and Address Organization Details Recorded Time Acute sinusitis 66551261 Active 2016 Juanito Fulton PA-C Attn: Accounting ,[address] [facility], [place], [address] , [place] - [facility] 7 11:50:09 On examinatio n - carotid bruit Active 2017 Juanito Fulton PA-C Attn: Accounting ,[address] [place], [address] , [facility] 8 16:40:13 Low back pain 048124590 Active 2017 Juanito Fulton PA-C Attn: Accounting ,[address] [place], [address] , [facility] - [facility] 8 15:01:35 Parotitis 43273390 Active 2017 Juanito Fulton PA-C Attn: Accounting ,[address] [place], [address] , [facility] - [facility] 8 13:29:26 Multinodul ar goiter 481181959 Active 2017 Juanito Fulton PA-C Attn: Accounting ,[address] [place], [address] , [facility] - [facility] 8 20:44:22 Strain of muscle of right shoulder 8439695068104 9105 Active 2018 Juanito Fulton PA-C Attn: Accounting ,[address] [place], [address] , [facility] - [facility] 9 14:49:49 Open heart surgery 5766035 Active 2018 cab Juanito Fulton PA-C Attn: Accounting ,[address] [place], [address] , [place] - [facility] 9 15:41:34 Vulvovagin itis 01238335 Active 2019 Juanito Fulton PA-C Attn: Accounting ,[address] [place], [address] , [place] [facility] 0 10:21:44 Coronary arterioscl erosis 72524252 Active 2019 Juanito Fulton PA-C Attn: Accounting ,[address] [place], [address] , [place] [facility] 0 14:41:00 Allergic rhinitis 75851374 Active Juanito Fulton PA-C Attn: Accounting ,[address] [place], [address] , [place] [facility] 6 16:23:53 Perimenopa usal disorder 786604020 Active Juanito Fulton PA-C Attn: Accounting ,[address] [place], [address] , [place] [facility] 5 12:49:13 Gastroesop hageal reflux disease 574978284 Active Juanito Fulton PA-C Attn: Accounting ,[address] [place], [address] , [place] [facility] 5 12:49:13 Hypertensi ve disorder 28705358 Active Telma Aparicio PA-C Attn: Accounting ,[address] [place], [address] , [place] [facility] 6 11:09:24 Hyperlipid emia 29577379 Active Juanito Fulton PA-C Attn: Accounting ,[address] [place], [place], [address] [place] [address] , [place] - [facility] 6 16:23:53 Disorder of vitamin B12 219940961 Active Juanito Fulton PA-C Attn: Accounting ,[address] [place], [address] , [place] [facility] 6 16:23:53 Acquired trigger finger 1079719 Active Juanito Fulton PA-C Attn: Accounting ,[address] [place], [address] , [place] [facility] 5 12:49:13 Osteoarthr itis of knee 997488243 Active Juanito Fulton PA-C Attn: Accounting ,[address] [place], [address] , [place] [facility] 6 16:23:53 Urinary tract infectious disease 35406833 Active Telma Aparicio PA-C Attn: Accounting ,[address] [facility], [place], [address] , [place] [facility] 6 11:09:24 Acute bronchitis 06981008 Active 2015 Juanito Fulton PA-C Attn: Accounting ,[address] [facility], [place], [address] , [place] [facility] 6 10:32:36 Vaginitis 77558680 Active 2016 Juanito Fulton PA-C Attn: Accounting ,[address] [facility], [place], [address] , [place] [facility] 7 16:03:49 Fatigue 79187621 Active 2016 Juanito Fulton PA-C Attn: Accounting ,[address] [facility], [place], [address] , [place] [facility] 7 14:45:32 Problem Notes None recorded. Procedures Surgical History Date Name Laterality Status Provider Name and Address Organization Details Recorded Time 09/14/19 19 open heart surgery completed Shara Moore [place] - [facility] 10/12/2018 14:29:46 09/22/19 12 Cholecystectomy completed Li Angelo [place] - [facility] 03/10/2018 13:06:41 Imaging Results Imaging Date Name Status LastModified by Organiz ation Details LastModified Time 05/03/2023 US, duplex, carotid artery completed non [address], [address], 05/04/2023 11:18:58 Procedure Notes None recorded. Medical Equipment None Reported. Allergies Allergen ID Allergen Name Allergen Category Reaction Reaction Severity Criticality Documentation Date Start Date Code Code System Note Provider Name and Address Organization Details Recorded Time 90535 codeine medicatio n nausea Not available Not available 06/10/2014 8410 [facility] MARLIN [place], [place] - [facility] 5 16:28:03 Medications Name Sig Start Date Stop Date Status Note LastModified by Organization Details LastModified Time losartan 50 mg tablet TAKE ONE TABLET BY MOUTH ONCE DAILY 10/21 completed Not Available Not Available Not Available cyclobenz aprine 10 mg tablet Take 1 tablet every day by oral route at bedtime for 30 days. active Not Available Not Available No t Available atorvasta tin 40 mg tablet 03/08 completed sore muscles Not Available Not Available Not Available promethaz ine-DM 6.25 mg-15 mg/5 mL oral syrup Take 5 mL every 8 hours by oral route for 10 days. 03/10 completed Not Available Not Available Not Available Depo-Medr ol 40 mg/mL suspensio n for injection 01/19 completed Not Available Not Available Not Available azithromy natasha 250 mg tablet 09/09 completed Not Available Not Available Not Available ibuprofen 800 mg tablet TAKE 1 TABLET BY MOUTH THREE TIMES DAILY WITH FOOD active Not Available Not Available No t Available bisoprolo l 10 mg-hydroc hlorothia zide 6.25 mg tablet TAKE 2 TABLETS BY MOUTH ONCE DAILY 05/09 completed Not Available Not Available Not Available metoprolo l tartrate 100 mg tablet TAKE 1 TABLET BY MOUTH EVERY 12 HOURS active Not Available Not Available No t Available fluconazo le 150 mg tablet Take 1 tablet 3 times a week by oral route as needed for 7 days. active Not Available Not Available No t Available prednison e 20 mg tablet Take 2 tablets twice a day by oral route as directed for 2 days. 10/08 completed Not Available Not Available Not Available potassium chloride ER 10 mEq tablet,ex tended release 10/08 completed Not Available Not Available Not Available clopidogr el 75 mg tablet Take 1 tablet every day by oral route. 05/09 completed just taking 81 mg aspirin Not Available Not Available Not Available amlodipin e 5 mg tablet TAKE 1 TABLET BY MOUTH ONCE DAILY IN THE MORNING 11/24 completed Not Available Not Available Not Available ciproflox acin 500 mg tablet Take 1 tablet every 12 hours by oral route for 10 days. active Not Available Not Available No t Available sulfameth oxazole 800 mg-trimet hoprim 160 mg tablet Take 1 tablet every 12 hours by oral route for 5 days. 01/19 completed Not Available Not Available Not Available tramadol 50 mg tablet active Not Available Not Available Not Available Prevacid 30 mg capsule,d elayed release Take 1 capsule every day by oral route before meals for 30 days. 01/19 completed Not Available Not Available Not Available oxycodone -acetamin ophen 5 mg-325 mg tablet 10/08 completed Not Available Not Available Not Available magnesium oxide 400 mg (241.3 mg magnesium ) tablet active Not Available Not Available Not Available phenazopy ridine 95 mg tablet Take 1 tablet 3 times a day by oral route as needed. 01/19 completed Not Available Not Available Not Available baclofen 10 mg tablet Take 1 tablet 3 times a day by oral route as needed for 30 days. 05/09 completed restarte d cycloben zaprine Not Available Not Available Not Available amlodipin e 10 mg tablet Take 1 tablet by mouth once daily in the morning for 30 days active Not Available Not Available No t Available hydrocodo ne 7.5 mg-acetam inophen 325 mg tablet Take 1 tablet 3 times a day by oral route as needed for 30 days. active Not Available Not Available No t Available cephalexi n 500 mg capsule 10/08 completed Not Available Not Available Not Available cyanocoba omar (vit B-12) 1,000 mcg/mL injection solution Inject 1000 microgra ms every month by intramus cular route. 01/19 completed Not Available Not Available Not Available metoprolo l tartrate 50 mg tablet TAKE 1 TABLET BY MOUTH TWICE DAILY active Not Available Not Available No t Available docusate sodium 100 mg capsule Take 1 capsule every day by oral route. active Not Available Not Available No t Available furosemid e 20 mg tablet active Not Available Not Available Not Available methylpre dnisolone 4 mg tablets in a dose pack 10/08 completed Not Available Not Available Not Available lisinopri l 40 mg tablet Take 1 tablet every day by oral route in the morning for 30 days. 02/15 completed dry cough Not Available Not Available Not Available losartan 100 mg tablet TAKE 1 TABLET BY MOUTH ONCE DAILY IN THE MORNING active Not Available Not Available No t Available fluticaso ne propionat e 50 mcg/actua tion nasal spray,deepika pension USE 1 SPRAY(S) IN EACH NOSTRIL ONCE DAILY active Not Available Not Available No t Available loratadin e 10 mg tablet Take 1 tablet every day by oral route in the morning for 30 days. active Not Available Not Available No t Available amoxicill in 875 mg-potass ium clavulana te 125 mg tablet Take 1 tablet every 12 hours by oral route for 10 days. 10/12 completed Not Available Not Available Not Available olmesarta n 40 mg tablet Take 1 tablet every day by oral route in the morning for 30 days. 03/10 completed Not Available Not Available Not Available azithromy natasha 500 mg tablet Take 1 tablet every day by oral route for 5 days. 11/15 completed Not Available Not Available Not Available ezetimibe 10 mg tablet active Not Available Not Available Not Available rosuvasta tin 5 mg tablet TAKE 1 TABLET BY MOUTH ONCE DAILY active Not Available Not Available No t Available Allergy Relief (diphenhy dramine) 25 mg capsule active Not Available Not Available Not Available Aspir-81 active Not Available Not Avai lable Not Available GaviLyte- G 236 gram-22.7 4 gram-6.74 gram-5.86 gram oral solution active Not Available Not Available Not Available Pennsaid 20 mg/gram/a ctuation (2 %) topical soln in metered-d ose pump APPLY 2 PUMPS (40 MG) TO THE AFFECTED KNEE(S) BY TOPICAL ROUTE 2 TIMES PER DAY 2019 active Not Available Not Available Not Avai lable Flucelvax Quad 7496-2112 (PF) 60 mcg (15 mcg x 4)/0.5 mL IM syringe 03/10 completed Not Available Not Available Not Available Vitals Date Recorded Body height Body mass index (BMI) Body weight Oxygen saturation Oxygen saturation in Arterial blood by Pulse oximetry Heart rate Body temperature Systolic blood pressure Diastolic blood pressure Provider Name and Address Organization Details Last Updated DateTime 9 160.02 cm 29.1 kg/m2 55207.1 5 g 98 % 98 % 73 /min 97.7 [degF] 160 mm[Hg] 92 mm[Hg] Shara Moore [place] - [facility] 9 11:01:16 Date Recorded Body height Body mass index (BMI) Body weight Oxygen saturation Oxygen saturation in Arterial blood by Pulse oximetry Heart rate Body temperature Systolic blood pressure Diastolic blood pressure Provider Name and Address Organization Details Last Updated DateTime 0 160.02 cm 27.9 kg/m2 42554.4 4 g 98 % 98 % 66 /min 98 [degF] 162 mm[Hg] 88 mm[Hg] Shara Moore, [facility] 0 10:09:03 Date Recorded Body height Provider Name an d Address Organization Details Last Updated DateTime 07/10/2019 160.02 cm Shara De La Cr uz, [facility] 07/10/2019 10:23:10 Date Recorded Body height Provider Name an d Address Organization Details Last Updated DateTime 10/09/2019 160.02 cm Shara De La Cr uz, [facility] 10/09/2019 09:52:32 Date Recorded Body height Provider Name an d Address Organization Details Last Updated DateTime 12/10/2019 160.02 cm Shara De La Cr uz, [facility] 12/10/2019 09:39:25 Social History Question Answer Notes LastModified by Organizat ion Details LastModified Time Tobacco Smoking Status Former Smoker Quit 09/11/18 Li Angelo MA [facility], [facility] 11/24/2018 15:27:55 Do You Have An Advance Directive? No Information not available 06/10/2014 Are You Blind Or Do You Have Difficulty Seeing? No Information not available 06/10/2014 What Is Your Level Of Caffeine Consumption? Heavy Information not available 06/10/2014 How Much Tobacco Do You Chew? None Information not available 06/10/2014 Are You Deaf Or Do You Have Serious Difficulty Hearing? No Information not available 06/10/2014 What Type Of Diet Are You Following? REGULAR Information not available 06/10/2014 Education 2 Year College Information not available 06/10/2014 Are There Any Guns Present In Your Home? No Information not available 06/10/2014 Hard Of Hearing Or Deaf In One Or Both Ears? No Information not available 06/10/2014 Legally Blind In One Or Both Eyes? No Information not available 06/10/2014 Marital Status Informatio n not available 06/10/2014 What Was The Date Of Your Most Recent Tobacco Screening? 05/09/2019 [email or web address] Information not available 05/09/2019 How Many Children Do You Have? 2 eewig Information not available 09/18/2015 Seat Belts Used Routinely Yes Information not available 06/10/2014 Smoke Alarm In Home No Information not available 06/10/2014 How Much Tobacco Do You Smoke? 0.5 PPD Information not available 05/03/2017 General Stress Level Medium Information not available 06/10/2014 Do You Use Sunscreen Routinely? Yes Information not available 06/10/2014 How Many Years Have You Smoked Tobacco? 40 Information not available 05/03/2017 Sex: Unknown Functional Status Question Answer Note LastModified by Organizat ion Details LastModified Time What is your level of alcohol consumption? 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 None Information not available 06/10/2014 Mental Status Question Answer Note LastModified by Organizat ion Details LastModified Time Do you have difficulty concentrating, remembering or making decisions? Yes memory Information no t available 06/10/2014 Family History Relationship Description Onset Age of this Age Resolved Age Notes LastModified by Organization Details LastModified Time Mother Atrial fibrillation Not available 16:28:03 Mother Cerebrovascu lar accident Not available 16:28:03 Mother Stented artery Not available 2014 16:28:03 Mother Viral hepatitis, type A Not available 2014 16:28:03 Father Myocardial infarction 63 Not available 06/10 16:28:03 Medical History Condition Response Muscle, Joint, or Bone Problems Y Acid Reflux (GERD) Y High Blood Pressure Y GI Problems N Gynecological History Statement/Question Response Menses Monthly N If Post Menopausal, Age at Menopause 48 Current Control Method Tubal Ligat ion Age at First Child 21 Obstetrics History GPAL:G 0 P 0 0 0 0 Past Encounters Encounter ID Performer Location Encounter Start Date Encounter Closed Date Diagnosis/Indication Diagnosis SNOMED-CT Code Diagnosis ICD10 Code Diagnosis Note [id number] KIRILL Vitale (Adult Med) [address] [place] [phone] 06/10/2014 16:20:55 06/10/2014 18:01:00 Allergic rhinitis 17337010 Disorder o f vitamin B12 209749185 Gastroesop hageal reflux disease 004911719 Hyperlipidemia 81392362 Hypertensive disorder 78227999 Perimenopa usal disorder 024165944 [id number] MD Kevin Sahni (Adult Med) [address] [place] [id number] 11/29/2014 12:22:06 11/29/2014 15:02:05 Allergic rhinitis 11118522 Disorder o f vitamin B12 541215105 Gastroesop hageal reflux disease 262314498 Hyperlipidemia 49620797 Hypertensive disorder 13043279 Perimenopa usal disorder 432001730 Acquired t insurance adjuster finger 4965686 4th finger left hand , 2 months, no trauma [id number] KIRILL Vitale (Adult Med) [address] [place] [phone] 07/18/2015 16:06:02 07/18/2015 16:37:04 Hypertensive disorder 63229375 I10 Hyperlipidemia 75246023 E78.5 Disorder o f vitamin B12 114108810 E53.8 Allergic rhinitis 627694 04 J30.9 Osteoarthr itis of knee 310991825 M17.9 [id number] MD Kevin Jorge (Adult Med) [address] [place] [id number] 09/18/2015 10:28:01 09/18/2015 11:09:53 Urinary tract infectious disease 66498350 N39.0 Hypertensive disorder 38 981384 I10 Advised to check her BP daily - if elevated, advised to RTC to see her PCP Advised that if she develops CP, SOB, nausea, vomiting to go to the ER Advised to not smoke within 1 hour of coming into clinic [id number] MD Kevin Sahni (Adult Med) [address] [place] [id number] 01/20/2016 10:11:11 01/20/2016 18:28:25 Acute bronchitis 52062074 J20.9 Acquired t insurance adjuster finger 6379576 M65.30 4th finger left hand , 2 months, no trauma Gastroesop hageal reflux disease 733492201 K21.9 Osteoarthr itis of knee 481612221 M17.9 Hypertensive disorder 38 064239 I10 Disorder o f vitamin B12 059562984 E53.8 Hyperlipidemia 47911490 E78.5 [id number] Shruthi Paula MD [facility] (Adult Med) [address] [place] [phone] 07/12/2016 14:52:36 07/12/2016 16:05:27 Hypertensive disorder 42963160 I10 Acquired t insurance adjuster finger 5562323 M65.30 4th finger left hand , 2 months, no trauma Gastroesop hageal reflux disease 469238284 K21.9 Disorder o f vitamin B12 089635683 E53.8 Hyperlipidemia 24509899 E78.5 Allergic rhinitis 706679 04 J30.9 Vaginitis 75773191 N76.0 [id number] Shruthi Paula MD [facility] (Adult Med) [address] [place] [id number] 09/09/2016 14:20:51 09/10/2016 09:48:08 Disorder of vitamin B12 960149672 E53.8 Hypertensive disorder 38 224256 I10 Osteoarthr itis of knee 418776568 M17.9 Gastroesop hageal reflux disease 375959256 K21.9 Allergic rhinitis 574532 04 J30.9 Hyperlipidemia 58253003 E78.5 [id number] MD Kevin Sahni (Adult Med) [address] [place] [address] [id number] 10/21/2016 14:26:05 10/21/2016 14:49:23 Hypertensive disorder 52669029 I10 Fatigue 03237579 R53.83 [id number] MD Kevin Sahni (Adult Med) [address] [place] [id number] 02/15/2017 11:09:55 02/15/2017 15:52:42 Acute sinusitis 43005121 J01.90 Acute bronchitis 9620977 2 J20.9 Osteoarthr itis of knee 243449035 M17.9 Vaginitis 06984716 N76.0 Hypertensive disorder 38 283468 I10 Acquired t insurance adjuster finger 5488142 M65.30 4th finger left hand , 2 months, no trauma Hyperlipidemia 53870630 E78.5 Allergic rhinitis 251188 04 J30.9 [id number] MD Kevin Sahni (Adult Med) [address] [place] [address] [id number] 05/03/2017 16:06:20 05/03/2017 17:22:11 On examination - carotid bruit 391227396 R09.89 [id number] MD Kevin Sahni (Adult Med) [address] [place] [id number] 11/15/2017 14:18:51 11/16/2017 10:16:11 On examination - carotid bruit 110774975 R09.89 Osteoarthr itis of knee 249509312 M17.9 Low back pain 032836804 M54.5 Disorder o f vitamin B12 444321689 E53.8 Hyperlipidemia 55611581 E78.5 [id number] MD Kevin Sahni (Adult Med) [address] [place] [address] [id number] 03/10/2018 12:31:14 03/16/2018 09:50:08 Parotitis 16379719 K11.20 Acquired t insurance adjuster finger 9092253 M65.30 4th finger left hand , 2 months, no trauma Gastroesop hageal reflux disease 535089116 K21.9 Hypertensive disorder 38 270438 I10 Hyperlipidemia 80010560 E78.5 [id number] MD Kevin Sahni (Adult Med) [address] [place] [address] [id number] 10/12/2018 13:50:39 10/13/2018 13:46:55 Strain of muscle of right shoulder 3179387004 3502578 S46.911A Low back pain 856886214 M54.5 [id number] MD Kevin Sahni (Adult Med) [address] [place] [address] [id number] 11/24/2018 15:13:15 11/27/2018 09:57:03 Hyperlipidemia 10018015 E78.5 Gastroesop hageal reflux disease 654207012 K21.9 Strain of muscle of right shoulder 5382583502 0341561 S46.911A Acute sinusitis 43158724 J01.90 Low back pain 361963783 M54.5 Osteoarthr itis of knee 991024418 M17.9 Hypertensive disorder 38 960480 I10 [id number] MD Kevin Sahni (Adult Med) [address] [place] [address] [id number] 03/08/2019 10:32:34 03/08/2019 11:50:22 Hypertensive disorder 86800988 I10 Acquired t insurance adjuster finger 1438240 M65.30 4th finger left hand , 2 months, no trauma [id number] MD Kevin Sahni (Adult Med) [address] [place] [address] [id number] 05/09/2019 10:01:37 05/10/2019 10:25:07 Hypertensive disorder 54746995 I10 Vulvovaginitis 63160081 N76.0 Low back pain 209766232 M54.5 Allergic rhinitis 816854 04 J30.9 Gastroesop hageal reflux disease 737200900 K21.9 Hyperlipidemia 34631258 E78.5 [id number] KIRILL Vitale (Adult Med) [address] [place] [address] [id number] 07/10/2019 09:34:43 07/10/2019 10:34:31 Allergic rhinitis 20849475 J30.9 Gastroesop hageal reflux disease 311980638 K21.9 Hyperlipidemia 76761536 E78.5 Low back pain 288337640 M54.5 Osteoarthr itis of knee 210505356 M17.9 Coronary arteriosclerosis 11455239 I25.10 [id number] MD Kevin Sahni (Adult Med) [address] [place] [address] [id number] 10/09/2019 09:36:27 10/09/2019 10:18:18 Gastroesophageal reflux disease 388003225 K21.9 Hyperlipidemia 53713849 E78.5 Hypertensive disorder 38 631793 I10 Allergic rhinitis 514510 04 J30.9 Coronary arteriosclerosis 11397249 I25.10 Strain of muscle of right shoulder 0229255863 6686777 S46.911A Low back pain 794424321 M54.5 [id number] Shruthi Paula MD [facility] ([facility]) [address] [place] [id number] 0 12/10/2019 08:03:51 12/10/2019 10:41:38 Allergic rhinitis [id number] J30.9 Gastroesop hageal reflux disease 583785331 K21.9 Hyperlipidemia [id number] E78.5 Acute sinusitis [id number] J01.90 Health Concerns Section Related Observation LastModified by Organization Detai ls LastModified Time None Recorded Concern Status LastModified by Organization Details LastModified Time None Recorded Advance Directives Directive N: Payers Encounter Date Sequence Insurance Name Policy Number Policy Langley Covered Member ID Langley Member ID Guarantor Name 03/08/2019 1 [employer] ([facility]) [id number] 1 Ciara A Stef [id number] Ciara Stef 05/09/2019 1 [employer] ([place]) [id number] 1 Ciara A Stef [id number] Ciara Stef 07/10/2019 1 [employer] ([place]) [id number] 1 Ciara A Stef [id number] Ciara Stef 10/09/2019 1 [employer] ([facility]) [id number] 1 Ciara A Tsef [id number] Ciara Stef 12/10/2019 1 [employer]) [id number] 1 Ciara A Stef [id number] Ciara Stef Notes Date Note Type Note Provider Name and Address Organization Details Recorded Time 05/09/2019 text/html Dr. Pires just raised her metoprolol; need refills , has a yeast infection .... Juanito Fulton PA-C Attn: Accounting,[address] [place], [address], [place] [facility] 05/14/2019 14:20:25 07/10/2019 text/html no changes ... Juanito Fulton PA-C Attn: Accounting,[address] [facility], [place], [address], [facility] - [facility] 07/13/2019 14:41:32 10/09/2019 text/html since heart surgery .. wakes up in pain, right shoulder , has the resistance bands fro physical therapy , which help ..... .....hasn't smoked since surgery ...breathing much easier ... Juanito Fulton PA-C Attn: Accounting,[address] [facility], [place], [address], [facility] 10/09/2019 13:47:03 12/10/2019 text/html no fever , just allergy symptoms Juanito Fulton PA-C Attn: Accounting,[address] [place], [address], [facility] 12/12/2019 12:53:01 OBGyn Episode No OBEpisode recorded.
[2024-08-10 15:54] LABS: Anion Gap 8 mmol/L (4-12); Blood Urea Nitrogen 20 mg/dL (7-17); Calcium 10.3 mg/dL (8.4-10.2); Carbon Dioxide 22 mmol/L (22-30); Chloride 106 mmol/L (98-107); Estimated Glomerular Filt Rate 55; Glucose 112 mg/dL (65-110); Potassium 3.7 mmol/L (3.4-5.0); Sodium 136 mmol/L (137-145)
[2024-08-10 16:07] LABS: Parathyroid Intact 30.7 pg/mL (14.5-75.2)
== END 2024-08-10 13:40 | disposition home or self-care (01) ==
LOC: ANHLAB 13:40
PROVIDERS: PCP Internal Medicine; Visit Provider Clinical Nurse Specialist
DX: E83.52 Hypercalcemia (principal)
CPT/HCPCS: 36415; 80048; 83970

== ENCOUNTER 2024-08-22 08:19 | Outpatient (CLI) | payer BC, SELFPAY ==
--- NOTE | ~2024-08-22 | US_ITS ---
Ultrasound of the left parotid region CLINICAL HISTORY: Palpable lump FINDINGS: Sonographic imaging of the left parotid gland demonstrates a 7 mm reniform intraparotid lym ph node with fatty hilum. There is an additional intraparotid lymph node measuring 1.0 cm in maximum diameter, again with fatty hilum. IMPRESSION: 2 intraparotid lymph nodes within the left parotid gland. Reviewed, dictated and finalized at location .
--- NOTE | ~2024-08-22 | CT_ITS ---
CT Scan of the Chest without Contrast: Clinical Indication: Lung cancer screening, nicotine dependence Technique: Contiguous sections were acquired throughout the chest without intravenous contrast. Dose reduction technique was used on this scan by utilizing automated exposure control and iterative recon struction technique. The dose-length product (DLP) was 83.92 mGy-cm. Findings: There is no evidence of any significant mediastinal, hilar or axillary lymphadenopathy. The mediastin al soft tissues appear normal. There is no evidence of pleural or pericardial effusion. The lungs are clear. No pulmonary nodules or infiltrates are noted. Images through the upper abdomen reveal no abnormalities. Impression: Lung RADS 1: Negative. 12 month follow-up screening CT advised. Reviewed, dictated and finalized at location . Impression: Lung RADS 1: Negative. 12 month follow-up screening CT advised.
--- NOTE | ~2024-08-22 | US_ITS ---
EXAMINATION: US carotid duplex BI DATE: 08/22/2024 08:41 INDICATION: History of disease of the circulatory system. TECHNIQUE: Grayscale, color Doppler, and pulsed Doppler images of the cervical carotid arteries were obtained. The degree of vessel stenosis is placed in one of the following categories: normal, <50%, 5 0-69%, >=70% but less than near-occlusion, near-occlusion, or total occlusion. Note that percent sten osis relative to normal distal artery lumen diameter is indirectly measured from velocity measurement s as described by Ajit, et al. Radiology 2003; 229:340-346. Notes: Normal: Peak systolic velocity <125 centimeters/sec and no plaque <50%. Peak systolic velocity <125 ( EDV <40; ICA/CCA PSV ratio <2.0; used these factors only a tandem lesions or low cardiac output or co ntralateral disease) 50-69 %: PSV 125-230 (EDV 40-100; ratio 2-4) >= 70% but less than near occlusion: PSV greater than 230 (EDV > 100; ratio> 4.0) Near Occlusion: PSV that is variable; markedly narrowed lumen Occlusion: Absent flow on color/spectral Doppler and no lumen on maxwell scale. COMPARISON: None. FINDINGS: RIGHT: The right common carotid artery (CCA) peak systolic velocity (PSV) is 109 cm/s. The right internal ca rotid artery (ICA) PSV is 89 cm/s. The right ICA end-diastolic velocity (EDV) is 25 cm/s. The right I CA/CCA PSV ratio is 0.8. The external carotid artery (ECA) PSV is 147 cm/s. There is antegrade flow i n the right vertebral artery. LEFT: The left CCA PSV is 114 cm/s. The left ICA PSV is 109 cm/s. The left ICA EDV is 28 cm/s. The left ICA /CCA PSV ratio is 1.0. The ECA PSV is 135 cm/s. There is antegrade flow in the left vertebral artery . IMPRESSION: 1. Less than 50% stenosis in the right internal carotid artery by sonographic criteria. 2. Less than 50% stenosis in the left internal carotid artery by sonographic criteria. Reviewed, dictated and finalized at location A. IMPRESSION: 1. Less than 50% stenosis in the right internal carotid artery by sonographic c riteria. 2. Less than 50% stenosis in the left internal carotid artery by sonographic cr lesliia.
== END 2024-08-22 08:20 | disposition home or self-care (01) ==
LOC: GOSHIMG 08:19
PROVIDERS: PCP Clinical Nurse Specialist; Visit Provider Clinical Nurse Specialist
DX: Z12.2 Encounter for screening for malignant neoplasm of respiratory organs (principal); Z87.891 Personal history of nicotine dependence; R59.0 Localized enlarged lymph nodes; R42 Dizziness and giddiness
CPT/HCPCS: 71271; 76536; 93880

== ENCOUNTER 2024-11-15 11:08 | Outpatient (CLI) | payer BC, SELFPAY ==
--- NOTE | ~2024-11-15 | CT_ITS ---
EXAMINATION: CT abdomen pelvis w con DATE: 11/15/2024 11:38 INDICATION: Abdominal pain TECHNIQUE: Computed tomography (CT) of the abdomen and pelvis was performed with 100 cc Omnipaque 350 intravenous contrast. The dose-length product was 247.71 mGy-cm. Automated exposure control and iterative reconstruction technique were employed. COMPARISON: None. FINDINGS: Lung bases unremarkable. No significant pleural or pericardial effusion. Heart size normal. Fatty infiltration of the liver. There is a small low-density lesions of the liver, most likely benign cyst. The spleen, pancreas, adrenal glands and kidneys are unremarkable. Status post cholecystectomy. There is mild diffuse thickening of the colon, suspicious for colitis. No evidence for free air or free fluid. There is a right adnexal cyst measuring 3.5 cm. Uterus contains calcified fibroids. There is mild superior endplate compression fracture of L1, likely chronic. IMPRESSION: 1. Segmental thickening of the transverse and descending colon, suspicious for colitis, most likely infectious or inflammatory. 2: Right adnexal cyst measuring 3.5 cm. Differential diagnosis includes simple ovarian cyst,, peritoneal inclusion cyst paraovarian or paratubal cyst as well as neoplastic process including serous cystadenoma/mucinous cystoadenoma. Reviewed, dictated and finalized at location O.
--- OUTSIDE RECORDS SUMMARY | 2024-11-15 11:12 | XMS_ITS | Clinical Summary ---
Author Organization [facility] [address] [facility] Address [address] [place] [address] Care Team Providers Care Hr Business Partner Consultant Name Role Phone Vivian Pires NP Primary Care Provider [phone] Allergies Active Allergy Reactions Criticality Noted Date Comments Codeine Nausea only Low 07/24/2019 Snfctkl-Cmc-Sen Reductase Inhibitors Muscle pain,Dizziness Medium 03/27/2020 Atorvastatin [...] skin every 30 (thirty) days 3.5 mL 11 2 Active Additional Information Patient not taking.Reported [...] (09/12/2018): Added automatically from request for surgery [id number] Surgical History Surgery Date Site/Laterality Comments TUBAL [...] on file Legal Sex Female 4:08 PM RESEARCH EXECUTIVE Gender Identity Not on file Sexual Orientation [...] 9:54 AM CDT Height 160 cm (5' 3) 06/23/2023 9:54 AM CDT Body Mass Index [...] Vaccine (1 of 2) 2010 Influenza Vaccine (#1) 2024 05/18/2016 Insurance ANTHEM ACCESS [employer] TRADITIONAL ANTHEM ACCESS Advance Directives For more information, please contact: [phone] * Full Code (Latest Code Status on File) Date Activated Date Inactivated Comments 09/13/2018 4:21 PM 09/19/2018 6:07 PM * Full Code Date Activated Date Inactivated Comments 09/12/2018 6:53 PM 09/13/2018 4:20 PM Care Teams Hr Business Partner Consultant Relationship Specialty Start Date End Date Vivian Pires NP PCP - General Nurse Practitioner 05/03/19
[2024-11-15 11:31] LABS: Estimated Glomerular Filt Rate 56
== END 2024-11-15 11:09 | disposition home or self-care (01) ==
PROVIDERS: PCP Internal Medicine; Visit Provider Nurse Practitioner
DX: R10.32 Left lower quadrant pain (principal); R19.8 Other specified symptoms and signs involving the digestive system and abdomen; N83.201 Unspecified ovarian cyst, right side
CPT/HCPCS: 74177; Q9967

== ENCOUNTER 2024-11-20 10:09 | Outpatient (CLI) | payer BC, SELFPAY ==
--- NOTE | ~2024-11-20 | US_ITS ---
EXAMINATION: US pelvic complete w TV INDICATION: Right ovarian cyst seen on prior CT Comparison:CT dated 11/15/2024 TECHNIQUE: Multiple transabdominal and endovaginal sonographic images of the pelvis performed. FINDINGS: The uterus measures 6.9 x 4.4 x 2.8 cm. There is a calcified uterine fibroid measuring 2.1 cm. A smaller 8 mm fibroid is also identified. The endometrial complex measures 5 mm. The right ovary measures 4.4 x 3.2 x 2.9 cm. There is a simple ovarian cyst of the right ovary measuring 4.2 x 2.9 x 2.6 cm. The left ovary is not visualized. There is no free fluid in the pelvis. There are no abnormal masses seen on either side. IMPRESSION: 1. Uterine fibroids, largest being calcified measuring 2.1 cm. 2: Simple ovarian cyst of the right ovary measuring 4.2 cm, most likely benign. Risk for malignancy in postmenopausal females very low (less than 1%). Consider follow-up ultrasound in 6-12 months. Reviewed, dictated and finalized at location O. IMPRESSION: 1. Uterine fibroids, largest being calcified measuring 2.1 cm. 2: Simple ovarian cyst of the right ovary measuring 4.2 cm, most likely benign. Risk for malignancy in postmenopausal females very low (less than 1%). Conside r follow-up ultrasound in 6-12 months.
== END 2024-11-20 10:10 | disposition home or self-care (01) ==
LOC: GOSHIMG 10:09
PROVIDERS: PCP Internal Medicine; Visit Provider Nurse Practitioner
DX: D25.9 Leiomyoma of uterus, unspecified (principal); N83.291 Other ovarian cyst, right side; N94.9 Unspecified condition associated with female genital organs and menstrual cycle
CPT/HCPCS: 76830; 76856

== ENCOUNTER 2024-11-30 11:06 | Outpatient (CLI) | payer BC, SELFPAY | END 2024-11-30 11:07 | disposition home or self-care (01) | LOC: ANHLAB 11:06 | PROVIDERS: PCP Internal Medicine; Visit Provider Obstetrics & Gynecology | DX: N83.209 Unspecified ovarian cyst, unspecified side (principal); R19.09 Other intra-abdominal and pelvic swelling, mass and lump | CPT/HCPCS: 36415; 86304 ==

== ENCOUNTER 2025-01-02 14:53 | Outpatient (CLI) | payer BC, SELFPAY ==
--- NOTE | ~2025-01-02 | XR_ITS ---
XR chest 2V HOSTORY: Right upper quadrant pain x 2 days, no inj, smoker COMPARISON:[ None] FINDINGS: Frontal and lateral views of the chest were obtained. The lungs are clear. The heart size is normal in size. Pulmonary vasculature is unremarkable. Osseous structures are intact. IMPRESSION: No acute lung findings.] [ ] Reviewed, dictated and finalized at location S.
--- NOTE | ~2025-01-02 | US_ITS ---
LIMITED ABDOMINAL ULTRASOUND INDICATION:R10.11 - Right upper quadrant pain COMPARISON: None. FINDINGS: Liver: Visualized portions of the liver are normal. Common bile duct: Normal in size. Gallbladder: Gallbladder surgically absent. Visualized pancreas is unremarkable. IMPRESSION: No acute abdominal findings. Reviewed, dictated and finalized at location S.
== END 2025-01-02 14:54 | disposition home or self-care (01) ==
LOC: GOSHIMG 14:53
DX: R10.11 Right upper quadrant pain (principal)
CPT/HCPCS: 71046; 76705

== ENCOUNTER 2025-02-05 00:49 | Day surgery (SDC) | payer BC, SELFPAY ==
[2025-01-31 14:21] VITALS: BMI 22.6
--- NOTE | 2025-01-31 14:23 | PC.NURSE ---
[facility] has started construction of its new state of the art ER which will open Spring 2026. With this, we anticipate parking may be a challenge for some our surgical patients and families. Parking spaces are limited but are available for all Surgical, obstetrics, and ER patients sharing this lot. If you arrive and find you are having a hard time finding a parking space, please note that we understand the challenges, please drive around the hospital and park near Hospital Entrance 1. When you enter this entrance, you can ask a volunteer to direct or take you back to the surgical waiting area to check in. We appreciate everyone?s understanding of these expected challenges while we build for your future. Report to the Outpatient Waiting Room, entrance under the green pavilion located off [address], at time _0700_ on date _[id number]_. Planned Procedure Time: _0900_.? Time changes happen often and if your time is changed the preop area will call you the afternoon before. - You and your visitor will be asked to self-screen and do not enter if you have any COVID symptoms. Please call surgeon if you need to reschedule. - A mask is optional within the hospital at this time. Patients may have clear liquids (water, carbonated beverages, clear teas, apple juice) until 3 hours prior to surgery with a maximum of 20 ounces. - No food from midnight until time of surgery and no smoking, or chewing tobacco (or any form of nicotine). No chewing gum, candy or mints. Take only the following medications with a SIP of water on the morning of surgery: __Amlodipine DO NOT STOP ANY OF YOUR OTHER PRESCRIPTION MEDICATIONS PRIOR TO SURGERY EXCEPT THE FOLLOWING Hold all vitamins and supplements for 3 days per anesthesiologist. Medications to discontinue per physician Please call Dr Rossi's office and ask about Aspirin if need to hold or not. Date to take last dose Please no make-up, nail indonesian, hairspray, perfume, deodorant, or body powder the day of surgery.? No jewelry (including any body piercings) or valuables the day of surgery, leave them at home.? Please take a shower or bath the night before, or the morning of, surgery with an antibacterial soap.? Wear comfortable, loose fitting clothing.? - Jewelry must be removed prior to entering the operating room.? Rings and piercings that are not removed may be cut off. - The hospital will not accept responsibility for valuables.? - Please leave all valuables, including medications, at home the day of surgery. If you are going home after surgery, a licensed telephone directory distributor driver must drive you home.? - NO public transportation without another adult if you receive anesthesia. - We recommend that an adult stay with you for 24 hours following discharge. - We also recommend that you do not drive, make important decision, drink alcoholic beverages, or take any drugs that were not prescribed by your health care provider for at least 24 hours after your discharge time. Follow any additional instructions given to you from your surgeon. Telephone instructions given to _Ciara__and asked if any additional questions and then verbalized understanding. Patient advised to call surgeon office or pre surgery nurse liaison [phone] if any additional questions.
[2025-02-05] VITALS (16 sets, daily range): BP systolic 130–157; BP diastolic 57–77; PULSE 70–82; RESP 13–19; TEMP 36.1–37.5; O2SAT 89–100
--- OUTSIDE RECORDS SUMMARY | 2025-02-05 02:45 | XMS_ITS | Clinical Summary ---
Author Organization [place] [id number] [facility] Address [address] [place] [address] Care Team Providers Care Wind Farm Operations Manager Name Role Phone Vivian Pires NP Primary Care Provider [phone] Allergies Active Allergy Reactions Criticality Noted Date Comments Codeine Nausea only Low 07/24/2019 Hcxoigu-Esb-Dzx Reductase Inhibitors Muscle pain,Dizziness Medium 03/27/2020 Atorvastatin 40 mg and rosuvastatin 5 mg. Medications aspirin 81 mg enteric coated tabletIndicatio ns:acute myocardial infarction Take 1 tablet (81 mg total) by mouth daily 30 tablet 09/21/19 19 Active losartan (COZAAR) 100 mg tabletIndicatio ns:hypertension Take 1 tablet (100 mg total) by mouth daily Active omeprazole (PriLOSEC) 20 mg capsule Take 2 capsules (40 mg total) by mouth daily Active multivitamin capsule Take 1 capsule by mouth daily Active vitamin B complex capsule Take 1 capsule by mouth daily Active hydroCHLOROthia zide (HYDRODIURIL) 25 mg tabletIndicatio ns:Uncontrolled hypertension Take 0.5 tablets (12.5 mg total) by mouth daily 30 tablet 06/24/19 22 Active amLODIPine (NORVASC) 5 mg tablet Take 1 tablet by mouth once daily 30 tablet 07/01/19 23 Active metoprolol (LOPRESSOR) 100 mg tablet Take 1 tablet (100 mg total) by mouth daily 60 tablet 12/06/19 23 Active Additional Information Patient not taking.Reported on 01/29/2025 potassium chloride ER 20 mEq CR tablet Take 1 tablet (20 mEq total) by mouth daily 11/29/19 23 Active magnesium oxide 400 mg magnesium capsule Take 800 mg by mouth daily Active evolocumab (Repatha Pushtronex) 420 mg/3.5 mL wearable injector Inject 420 mg under the skin every 30 (thirty) days 3.5 mL 07/30/19 025 Discontinued Active Problems Problem Noted Date Diagnosed Date Presence of aortocoronary bypass graft 0 Coronary artery disease of n ative heart with stable angina pectoris 09/12/2018 Overview (09/12/2018): Added automatically from request for surgery [id number] Encounters Date Type Department Care Team Description 01/29/2025 10:45 AM AURICULOTHERAPIST Office Visit [facility] Cardiology at [address] [address] Kalia Danielson MD Coronary artery disease of [place] artery of [place] heart with stable angina pectoris (Primary Dx); Presence of aortocoronary bypass graft 01/29/2025 Telephone [facility] Cardiology at [address] [address] Naya Navarrete MA Cardiac Clearance from Last 3 Months Surgical History Surgery Date Site/Laterality Comments TUBAL [...] on file Legal Sex Female 4:08 PM AURICULOTHERAPIST Gender Identity Not on file Sexual Orientation Not on file Last Filed Vital Signs Vital Sign Reading Time Taken Comments Blood Pressure 142/80 01/29/2025 10:56 AM AURICULOTHERAPIST Pulse 82 01/29/2025 10:56 AM AURICULOTHERAPIST Temperature 36.6 C (97.9 F) 10/26/2018 10:56 AM CDT Respiratory Rate 14 10/26/2018 10:56 AM CDT Oxygen Saturation 99% 01/29/2025 10:56 AM AURICULOTHERAPIST Inhaled Oxygen Concentration - - Weight 60.5 kg (133 lb 6.4 oz) 01/29/2025 10:56 AM AURICULOTHERAPIST Height 160 cm (5' 3) 01/29/2025 10:56 AM AURICULOTHERAPIST Body Mass Index 23.63 01/29/2025 10:56 AM AURICULOTHERAPIST Plan of Treatment Health Maintenance Due Date [...] 2) 2010 Influenza Vaccine (#1) 2024 05/18/2016 Procedures Procedure Name Priority Date/Time Associated Diagnosis Comments POCT LIPID PANEL Routine 01/29/2025 3:19 PM AURICULOTHERAPIST Coronary artery disease of [place] artery of [place] heart with stable angina pectoris ECG 12-LEAD Routine 01/29/2025 11:01 AM AURICULOTHERAPIST Coronary artery disease of [place] artery of [place] heart with stable angina pectoris Presence of aortocoronary bypass graft from Last 3 Months Results * (ABNORMAL) POCT lipid panel (01/29/2025 3:19 PM AURICULOTHERAPIST) Cholesterol, POC 253 <200 MG/DL HDL, POC 33(A) >=40 mg/dL Triglycerides, POC 280(A) <=149 mg/dL LDL Cholesterol POC 164(A) <=129 mg/dL Chol/HDL Ratio, POC 7.7 NONE Non-HDL Cholesterol, POC 220 NONE mg/dL Cholesterol Total, POC 253(A) 30 - 199 mg/dL Capillary blood 01/29/2025 3 :19 PM AURICULOTHERAPIST us Kalia Danielson MD POINT OF CARE TEST ORDER NICOLE Final Result * ECG 12 lead (01/29/2025 11:01 AM AURICULOTHERAPIST) us Kalia Danielson MD ECG ORDERABLES Edited R esult - Final from Last 3 Months Insurance ANTHEM ACCESS ANTHPISTIS Consult TRADITIONAL ANTHEM ACCESS Advance Directives For more information, please contact: [phone] * Full Code (Latest Code Status on File) Date Activated Date Inactivated Comments 09/13/2018 4:21 PM 09/19/2018 6:07 PM * Full Code Date Activated Date Inactivated Comments 09/12/2018 6:53 PM 09/13/2018 4:20 PM Care Teams Wind Farm Operations Manager Relationship Specialty Start Date End Date Vivian Pires NP PCP - General Nurse Practitioner 05/03/19
--- NOTE | 2025-02-05 06:55 | PM.IMHP ---
H&P: HPI History of Present Illness Date/Time: 02/05/25 06:55 Chief Complaint: High grade dysplasia Narrative: She is a 64 y/o P2 with history of ASCUS pos HR HPV, subsequent colposcopy with CIN2. She was given option of LEEP procedure and informed of risk benefits. She requested definitive treatment with hysterectomy. She does not tolerate colposcopy well and there is a concern for compliance with follow up colposcopy. She is aware she will need pap smears on vaginal cuff for several years and possible colposcopy. She was informed that a hysterectomy is surgery to remove your uterus and cervix. Will also remove fallopian tubes and ovaries. Discussed that robotic surgery a minimally invasive hysterectomy, likely to have less pain and lose less blood than is typical with open abdominal surgery. Will usually resume normal daily activities more quickly than after open surgery.Although robotic hysterectomy is generally safe, any surgery has risks. Risks of robotic hysterectomy include: Heavy bleeding Blood clots in the legs or lungs Infection Damage to the bladder and other nearby organs Adverse reaction to anesthetic. Discussed the procedure in detail. She may be able to go home the same day after 4-6 hour or may need to stay in the hospital, usually one night is typical. She will be given medication for pain. She can expect some vaginal bleeding for a few days to weeks after the hysterectomy. Recovery after robotic hysterectomy is shorter and less painful than after an abdominal hysterectomy. A full recovery might take a month or two. Discussed not to lift anything heavy ? more than 20 pounds and have will be on pelvic rest for 6-8 weeks. She will need to do pap smears annually after hysterectomy for several years. Her questions were answered. Review of Systems Review of Systems: All systems reviewed & are unremarkable except as noted in HPI and below Cardiovascular: Cardiovascular: Reports no additional cardiovascular complaints, Denies chest pain and Denies dyspnea Respiratory: Respiratory: Reports no additional respiratory complaints and Denies dyspnea Gastrointestinal: Gastrointestinal: Reports abdominal pain, Denies change in bowel habits, Denies diarrhea, Denies nausea and Denies vomiting Genitourinary: Genitourinary: Reports pelvic pain Musculoskeletal: Musculoskeletal: Reports back pain Integumentary/Breasts: Skin/Breast: Reports system reviewed and no additional complaints, except as docu Neurologic: Reports system reviewed and no additional complaints, except as documented [facility] Past Medical History Medical History Heart attack Positive colorectal cancer screening using Cologuard test Gastroesophageal reflux disease HTN (hypertension) Hypercholesterolemia CAD (coronary artery disease) Surgical History Surgical History Hx of tubal ligation Hx of tonsillectomy Hx of cholecystectomy Hx of coronary artery bypass graft x2 08/2018 Family History Family History Mother Cerebrovascular accident Afib Sibling Cerebrovascular accident Pancreatic cancer Grandparent Family history of malignant neoplasm Father Heart attack Grandparent Aneurysm Social History Social History Smoking status: Current every day smoker Alcohol intake: never Lack of Transportation: No Lack of Food: Sometimes True Current Housing: I Have Housing Concerned About Future Housing: No Difficulty Paying Gas/Electric Bills: No Difficulty Paying for Meds: No Currently Unemployed: No Education: Associate Degree Difficulty w/ Childcare or Family Care: No Meds Home Medications and Allergies Home Medications ?Medication ?Instructions ?Recorded ?Confirmed ?Type aspirin 81 mg tablet,delayed 81 mg PO DAILY 04/05/19 01/31/25 History release (Aspir-) omeprazole 40 mg capsule,delayed 40 mg PO DAILY 04/05/19 01/31/25 History release magnesium oxide 400 mg (241.3 mg 400 mg PO DAILY 10/01/22 01/31/25 History magnesium) tablet multivitamin 1 tablet PO DAILY 08/08/24 01/31/25 History potassium chloride 20 mEq 20 meq PO DAILY #90 tabs 08/14/24 01/31/25 Rx tablet,extended release hydrochlorothiazide 12.5 mg tablet 12.5 mg PO DAILY #90 tabs 09/03/24 01/31/25 Rx losartan 100 mg tablet 100 mg PO DAILY #90 tabs 09/12/24 01/31/25 Rx ondansetron 4 mg disintegrating 4 mg PO Q8H PRN nausea and 01/07/25 01/31/25 Rx tablet vomiting #30 tabs amlodipine 10 mg tablet 10 mg PO DAILY #90 tabs 01/08/25 01/31/25 Rx Allergies Allergy/AdvReac Type Severity Reaction Status Date / Time No Known Allergies Allergy Verified 01/31/25 14:12 Exam Const: Orientation/consciousness: oriented to person and oriented to place HENMT: Head: normal to inspection Eyes: General: appearance normal, both eyes and all related structures Resp: Effort & Inspection: normal respiratory effort Auscultation: clear to auscultation bilaterally Cardio: Rate: regular rate Rhythm: regular rhythm GI: Inspection: normal to inspection GI Palp: No Rebound tenderness present Neuro: General: oriented to person and oriented to place Cognition (Neuro): normal cognition Extrem: General: normal to inspection Psych: Appearance: grossly normal and well kempt Assessment and Plan Assessment and plan (1) Dysplasia of cervix, high grade ASHLEY 2: Code(s): N87.1 - Moderate cervical dysplasia Status: Acute Assessment and Plan: Patient desires definitive treatment. Will proceed with laparoscopic robotic hysterectomy with bilateral salpingo-oophorectomy.
--- NOTE | 2025-02-05 07:45 | WPDANESEPPF ---
Anes - Initial Pre Proc Eval Procedure: Operation Date: 02/05/25 09:00 Proposed Procedures p Robotic Assisted Laparoscopic Total Vaginal Hysterectomy with Bilateral Salpingo-oophorectomy - Rob Rossi MD Date/Time: 02/05/25 07:45 Surgeon: Rob Rossi MD Pre Op Diagnosis: high grade dysplasia Patient Data Age: 64 Gender: F Height: 1.61 m Weight: 59 kg Allergies Allergy/AdvReac Type Severity Reaction Status Date / Time No Known Allergies Allergy Verified 01/31/25 14:12 Home Medications ?Medication ?Instructions ?Recorded ?Confirmed ?Type aspirin 81 mg tablet,delayed 81 mg PO DAILY 04/05/19 01/31/25 History release (Aspir-) omeprazole 40 mg capsule,delayed 40 mg PO DAILY 04/05/19 01/31/25 History release magnesium oxide 400 mg (241.3 mg 400 mg PO DAILY 10/01/22 01/31/25 History magnesium) tablet multivitamin 1 tablet PO DAILY 08/08/24 01/31/25 History potassium chloride 20 mEq 20 meq PO DAILY #90 tabs 08/14/24 01/31/25 Rx tablet,extended release hydrochlorothiazide 12.5 mg tablet 12.5 mg PO DAILY #90 tabs 09/03/24 01/31/25 Rx losartan 100 mg tablet 100 mg PO DAILY #90 tabs 09/12/24 01/31/25 Rx ondansetron 4 mg disintegrating 4 mg PO Q8H PRN nausea and 01/07/25 01/31/25 Rx tablet vomiting #30 tabs amlodipine 10 mg tablet 10 mg PO DAILY #90 tabs 01/08/25 01/31/25 Rx Patient hx anesthesia problems: none Family hx anesthesia problems: none Results Review: All pre-operative results and documents have been reviewed as part of the pre-operative evaluation. [facility] Past Medical History Medical History Heart attack Positive colorectal cancer screening using Cologuard test Gastroesophageal reflux disease HTN (hypertension) Hypercholesterolemia CAD (coronary artery disease) Surgical History Surgical History Hx of tubal ligation Hx of tonsillectomy Hx of cholecystectomy Hx of coronary artery bypass graft x2 08/2018 Family History Family History Mother Cerebrovascular accident Afib Sibling Cerebrovascular accident Pancreatic cancer Grandparent Family history of malignant neoplasm Father Heart attack Grandparent Aneurysm Social History Social History Smoking status: Current every day smoker Alcohol intake: never Lack of Transportation: No Lack of Food: Sometimes True Current Housing: I Have Housing Concerned About Future Housing: No Difficulty Paying Gas/Electric Bills: No Difficulty Paying for Meds: No Currently Unemployed: No Education: Associate Degree Difficulty w/ Childcare or Family Care: No Anes - Eval Final PreProcedure Day of Procedure 02/05/25 07:45 Patient weight: normal Heart: regular rate and rhythm Lungs: clear to auscultation Airway: Mallampati scale class II Neurological: alert and oriented Last oral intake: >/= 8 hours ASA classification: III Emergent: no Anesthetic plan: proceed Anesthesia type and monitoring: general ETT and standard monitoring Results Review: All pre-operative results and documents have been reviewed as part of the pre-operative evaluation. Informed Consent: The patient's anesthetic plan and its attendant risks and benefits were discussed with the patient/family/POA. Questions were solicited and answers provided to the satisfaction of the patient/family/POA.
[2025-02-05 08:29] LABS: Anion Gap 9 mmol/L (4-12); Blood Urea Nitrogen 15 mg/dL (7-17); Calcium 10.4 mg/dL (8.4-10.2); Carbon Dioxide 26 mmol/L (22-30); Chloride 105 mmol/L (98-107); Estimated CRCL calculation 52 ml/min; Estimated Glomerular Filt Rate > 60; Glucose 106 mg/dL (65-110); Potassium 3.7 mmol/L (3.4-5.0); Sodium 140 mmol/L (137-145)
[2025-02-05] MEDS: ENOXAPARIN 30 MG/0.3 ML SYRINGE SUB-Q (08:30)
[2025-02-05] MEDS: KETOROLAC 15 MG/ML VIAL (*BKC) IV PUSH (08:30)
[2025-02-05] MEDS: LACTATED RINGERS 1,000 ML 30 ML IV CONT ×2 (08:30→11:05)
[2025-02-05] MEDS: ACETAMINOPHEN 500 MG TABLET 1000 MG PO ×3 (08:30→23:35)
--- NOTE | 2025-02-05 08:47 | WPDHPUPDATE1 ---
History and Physical Update Update Date/Time: 02/05/25 08:47 History and Physical has been reviewed, including an updated exam of the patient. There are NO changes in the patient's condition. Risks, benefits, and alternatives have been discussed and questions answered. Patient agrees to proceed with procedure.
[2025-02-05] MEDS: metroNIDAZOLE 500 MG/ISO 100ML 500 MG/100 ML BAG 100 MG IVPB (09:19)
[2025-02-05] MEDS: ceFAZolin 2 GM in SODIUM CHLORIDE 0.9% IV 50 ML 100 ML IVPB (09:19)
--- NOTE | 2025-02-05 10:30 | S_PTH ---
PATIENT: Ciara Finch LOC: [facility] U#:[id number] AGE/SX: 64/F ROOM: RE02/05/[address]: Rob Rossi MD : 1960 BED: DIS: 02/06/2025 SPEC #: [id number] RECD: 02/05/25 10:58 STATUS: NALINI REQ #: [id number] SRUTHI: 02/05/25 10:[address]: Rob Rossi DEPT: [facility] Surgical RECD BY: Rambo Bagley ENTERED: 02/05/25 10:58 SP TYPE: Surgical OTHR DR: Milagros Soriano APRN Tissues: A - Uterus Procedures: Hematoxylin and Eosin Stain Gross and Microscopic Level 5
--- NOTE | 2025-02-05 10:48 | W.PM.PROC2 ---
Procedure Note - Detailed Date of Procedure 02/05/25 Pre-op Diagnosis high grade dysplasia Post-op Diagnosis Same (1.High grade dysplasia 2. Right ovarian cyst) Procedure Performed Laparoscopic robotic assisted total vaginal hysterectomy with bilateral salpingooophorectomy Lysis of adhesions Surgeon Rob Rossi MD [employer] Operator Francisco J Anesthesia General Indications High grade dysplasia Findings fibroid uterus and 3cm right ovarian cyst with clear fluid Description of Procedure After informed consent was obtained she was taken to the operating room and general endotracheal anesthesia was administered. She was placed in low lithotomy position. An exam under anesthesia was performed. She was and prepped and draped in sterile fashion. Wan catheter placed in bladder. Attention was turned to the vagina speculum was inserted. Single-tooth tenaculum placed on anterior lip of the cervix the uterus sounded to 8 cm. The cervix was dilated to a 8 Arzola dilator. A size 8 uterine manipulator was inserted and secured. A size 3.0 colp cup was secured in the vagina. Then attention was turned to the abdomen marcaine injected subcutaneously before each incision. An incision was made above the umbilicus . A Veress needle was inserted. Confirmation into the abdomen obtained with normal peritoneal pressures and free flow of fluid. The other incision were made bilateral laterally and superior right. Ports were inserted. Patient was placed in Trendelenburg position robotic arms were attached. Attention was turned to the surgery consult. Adhesions of the omentum to the lower mid abdominal wall were lysed to obtain adequate visualization of the pelvis. some adhesions that were attached to the pelvic wall were also lysed The right round ligament was ligated and the anterior leaf of the broad ligament was dissected. The right side of the bladder was dissected from the lower uterine segment and upper cervix. The fallopian tube and ovary were ligated. During the cyst that was on the right ovary was entered and the cyst was reduced clear fluid was noted. The broad ligament were then ligated and the ascending uterine vessels ligated. The uterine vessels were ligated. Attention was turned to the left round ligament which was ligated and the anterior leaf of the broad ligament was dissected anteriorly. The left tube and ovary were ligated from the broad ligament. The rest of the vesicouterine peritoneum was dissected off of the uterus. Once the bladder was dissected below the colp cup then the posterior leaf of the broad ligament was further dissected. The uterine arteries were ligated. The cardinal ligaments were ligated. This was done on both sides. An incision was made anterior colpotomy incision was made and this was carried around until the cervix was removed from the vagina. The uterus and cervix were removed through the vagina. The vaginal cuff was closed in a running fashion with 0 V lock suture. Hemostasis was noted. The pelvis was irrigated. Hemostasis noted. Hemoderm was applied in the pelvis. The patient was taken out of Trendelenburg position. The pneumoperitoneum was released and the ports were removed. The skin incisions were closed with 4 O Vicryl and Dermabond applied. The patient was extubated in operating room. The sponge count was correct x2. Patient tolerated procedure well and was taken to recovery in stable condition. Estimated Blood Loss 20 IV Fluids 1,000 Urine Output 200 Drains No Packing No Pathology Yes (uterus with cervix and right and left fallopian tube) Complications No immediate complications Condition Stable Disposition PACU [facility] Billing Surgery - Charge Forward: Surgery Billing
[2025-02-05] MEDS: ONDANSETRON INJ 4 MG/2 ML VIAL IV PUSH ×2 (11:54→18:40)
[2025-02-05] MEDS: DEXTROSE 5%/0.45% SOD CHL 1,000 ML 125 ML IV CONT (12:55)
[2025-02-05] MEDS: KETOROLAC 30 MG/ML VIAL (*BKC) IV PUSH (16:53)
[2025-02-05] MEDS: SIMETHICONE 80 MG TAB.CHEW PO (16:54)
[2025-02-06 03:25] VITALS: BP 141/66; PULSE 67; RESP 17; TEMP 37.6; O2SAT 95
[2025-02-06] MEDS: ACETAMINOPHEN 500 MG TABLET 1000 MG PO (06:28)
[2025-02-06 07:35] VITALS: BP 142/72; PULSE 69; RESP 16; TEMP 37.1; O2SAT 99
[2025-02-06] MEDS: LOSARTAN POTASSIUM 100 MG TABLET PO (09:39)
[2025-02-06] MEDS: PANTOPRAZOLE 40 MG TABLET PO (09:40)
[2025-02-06] MEDS: MAGNESIUM OXIDE 400 MG TABLET PO (09:40)
[2025-02-06] MEDS: SIMETHICONE 80 MG TAB.CHEW PO (09:41)
[2025-02-06] MEDS: DOCUSATE SODIUM 100 MG CAPSULE PO (09:41)
[2025-02-06] MEDS: MULTIVITAMINS THERAPEUTIC TAB (*BKC) 1 TABLET PO (10:35)
[2025-02-06] MEDS: oxyCODONE HCL (*CRX) 5 MG TAB IR PO (10:36)
--- NOTE | 2025-02-06 11:47 | P.PNOB_ITS ---
FINISHED STOCK INSPECTOR - A/P Assessment and plan (1) Hysterectomy planned: Status: Acute Assessment and Plan: POD1. Doing well. Discharge instructions. Discharge to home today. Postoperative Procedures: Procedures Operation Date: 02/05/25 09:00 Actual Procedure Side Surgeon p Robotic Assisted Laparoscopic Total Vaginal Hysterectomy with Bilateral Salpingo-oophorectomy, Lysis of Adhesions Bilateral Rob Rossi MD Time Spent With Patient Time: Total time spent is greater than 50% in coordination of care (as documented) at patient's floor/unit and/or counseling patient: Time with patient: less than 15 minutes FINISHED STOCK INSPECTOR- PN:Subj Post-Op Subjective Date/time seen: 02/06/25 11:47 Interval history: She has set up in a chair. She reports positive flatus. Tolerated breakfast. Denies leg pain. She has had a good pain control with oral medications. Denies problems with ambulating to restroom. Subjective: pain is well controlled and patient is tolerating oral intake Review of Systems 2 Review of Systems: All systems reviewed & are unremarkable except as noted in HPI and below Cardiovascular: Cardiovascular: Reports no additional cardiovascular complaints Respiratory: Respiratory: Reports no additional respiratory complaints Gastrointestinal: Gastrointestinal: Reports belching, Denies nausea and Denies vomiting Genitourinary: Genitourinary: Reports no additional female genitourinary complaints Musculoskeletal: Musculoskeletal: Reports no additional musculoskeletal complaints Exam 2 Const: General: comfortable and no acute distress O rientation/consciousness: oriented to person, oriented to place and oriented to time Resp: Effort & Inspection: normal respiratory effort GI: GI Palp: Yes Soft to palpation Other: Incisions healing no signs of infection soft nondistended Neuro: General: oriented to person, oriented to place and oriented to time Extrem: General: no calf tenderness Psych: Mental Status: mental status grossly normal FINISHED STOCK INSPECTOR - PN: Obj Data Vital Signs Vital Signs: Vital Signs - 24 hr 02/05/25 12:00 02/05/25 12:15 02/05/25 12:30 Temperature 96.9 F L Pulse Rate 76 77 77 Respiratory Rate 17 18 18 Blood Pressure 138/66 140/60 140/62 Pulse Oximetry 92 92 92 Oxygen Delivery Room Air Room Air Room Air Oxygen Flow Rate 02/05/25 12:45 02/05/25 12:55 02/05/25 13:05 Temperature 98.4 F Pulse Rate 72 Respiratory Rate 16 16 16 Blood Pressure 130/57 L Pulse Oximetry 89 L 94 94 Oxygen Delivery Room Air Nasal Cannula Oxygen Flow Rate 4 02/05/25 13:46 02/05/25 16:45 02/05/25 16:45 Temperature 98.2 F Pulse Rate 82 Respiratory Rate 16 19 Blood Pressure 153/70 H Pulse Oximetry 98 99 100 Oxygen Delivery Nasal Cannula Room Air Oxygen Flow Rate 4 02/05/25 17:00 02/05/25 20:20 02/05/25 20:38 Temperature 99.4 F Pulse Rate 81 Respiratory Rate 17 Blood Pressure 157/69 H Pulse Oximetry 97 96 Oxygen Delivery Room Air Room Air Oxygen Flow Rate 02/05/25 23:35 02/05/25 23:35 02/06/25 03:25 Temperature 99.5 F 99.6 F Pulse Rate 77 77 67 Respiratory Rate 18 18 17 Blood Pressure 147/61 H 141/66 H Pulse Oximetry 93 93 95 Oxygen Delivery Room Air Oxygen Flow Rate 02/06/25 03:25 02/06/25 07:35 Temperature 98.8 F Pulse Rate 67 69 Respiratory Rate 17 16 Blood Pressure 142/72 H Pulse Oximetry 95 99 Oxygen Delivery Room Air Oxygen Flow Rate Intake/Output Intake/Output: Intake & Output 02/03/25 02/04/25 02/05/25 02/06/25 23:59 23:59 23:59 23:59 Intake Total 1750 Output Total 1500 400 Balance 250 -400 Labs 02/05/25 08:03
--- NOTE | 2025-02-06 11:50 | PM.DS ---
DS: Admitting Diagnosis Discharge Date 02/06/25 Admitting Diagnosis Severe dysplasia DS: Discharge Diagnosis Discharge Diagnosis (1) Hysterectomy planned: Status: Acute DS: Summary Hospital Course Reason for hospitalization: Hysterectomy Hospital Course: She was admitted for hysterectomy. She had an uncomplicated hysterectomy. She did well post op and was discharged to home on post op day 1. Status at Discharge Functional status at discharge: independent ambulation Time Spent with Patient Time attestation: Total time spent providing and/or coordinating discharge services: Exam Const: General: cooperative Orientation/consciousness: oriented to person, oriented to place and oriented to time HENMT: Face/Nose/Sinus: Normal external nose present Eyes: General: appearance normal, both eyes and all related structures Resp: Effort & Inspection: normal respiratory effort GI: Inspection: normal to inspection Other: incisions intact Skin: General skin exam: normal color Neuro: General: oriented to person, oriented to place and oriented to time Extrem: General: normal to inspection and no calf tenderness Psych: Appearance: grossly normal Mental Status: mental status grossly normal DS: Data Data Completed and Pending Completed studies during hospitalization: Pending at discharge 02/05/25 10:30 Surgical [PTH] Routine Discharge Plan Discharge Patient Disposition: Home Discharge Instructions: Hysterectomy Discharge Instructions (Vaginal, Laparoscopic, or Abdominal) - Okay to shower in 24 hours, avoid baths/pools for 6-8 weeks - Nothing in the vagina for 6-8 weeks (no tampons or intercourse) - Limit lifting to less than 10-15 pounds and strenuous exercise for 6-8 weeks Incision Care - If you have a dressing, remove when instructed: ?- Newman/clear dressings should be removed by day 7 unless it get wet/starts peeling off ? - White tape/gauze dressings should be removed/exchanged daily - If no dressing: ? - Keep your incision open to air ? - Do not place any ointments/creams/solutions unless specified by your Doctor ? - It is okay to shower daily and let soap/water run over your incision, do not scrub your incision ? - Keep your incision clean and dry, okay to place gauze/paper in your skin fold to keep sweat out - Dermabond (purple skin glue) may start peeling around 10-14 days, okay to remove after 14 days - If you see a stitch (string), do not pull/tug on it, leave it alone Encouraged Activities/OTC Medications that are safe (Unless your doctor specifically told you not to take/do them, and you're not allergic) - Colace 1 capsule twice daily or Miralax daily to prevent constipation - Tylenol 1000mg every 6-8 hours as needed for pain - Ibuprofen 600mg every 6-8 hours as needed for pain - You can use heating pads or ice packs as needed if it helps with discomfort - Getting up/walking short distances multiple times daily-- we do not recommend bed rest - Stay hydrated; try to drink 64oz/ 2L daily of water, smaller meals are okay (decreased appetite is common after anesthesia) CALL YOUR DOCTOR/GO TO THE EMERGENCY ROOM IF YOU: - Are having heavy vaginal bleeding (saturating 2 Kotex pads an hour) - Cannot keep food/liquids down - Have not urinated in 6 hours or are unable to - Have not had a bowel movement in 5 days - Have a concerning rash that might be an allergic reaction - Have a fever greater than 100.4 degrees Fahrenheit - Significant pain not relieved with your prescribed medications +/- OTC meds - Significant redness, drainage, or bleeding from your incision - If you had a hysterectomy and are having abnormal vaginal discharge and/or vaginal bleeding Patient Instructions: Hysterectomy (DC) Patient Language: Icelandic Stand Alone Forms: General Discharge Instructions Discharge Medications: New acetaminophen 500 mg Tablet 500 mg PO Q4H PRN (Reason: Pain (Scale Score 4-6)) Qty: 30 0RF oxybutynin chloride 5 mg Tablet 5 mg PO BID Qty: 14 0RF oxycodone 5 mg Tablet 5 mg PO Q4H PRN (Reason: Pain Rated 4-6) Qty: 20 0RF ibuprofen 600 mg tablet 600 mg PO Q6H PRN (Reason: post op pain) Qty: 30 0RF Continued multivitamin Tablet 1 tablet PO DAILY omeprazole 40 mg Capsule,Delayed Release(Dr/Ec) 40 mg PO DAILY aspirin [Aspir-81] 81 mg Tablet,Delayed Release (Dr/Ec) 81 mg PO DAILY magnesium oxide 400 mg (241.3 mg magnesium) tablet 400 mg PO DAILY potassium chloride 20 mEq tablet extended release 20 meq PO DAILY Qty: 90 1RF hydrochlorothiazide 12.5 mg tablet 12.5 mg PO DAILY Qty: 90 1RF Rx Instructions: LAST REFILL,NEEDS APPOINTMENT losartan 100 mg tablet 100 mg PO DAILY Qty: 90 1RF ondansetron 4 mg tablet,disintegrating 4 mg PO Q8H PRN (Reason: nausea and vomiting) Qty: 30 1RF amlodipine 10 mg tablet 10 mg PO DAILY Qty: 90 1RF Other Ambulatory Orders: Basic Metabolic Panel (Routine) Timeframe: 20250131 Location: Determined by Patient Ordered By: Shan Zeng Type and Screen 14 Day (Routine) Timeframe: 20250131 Location: Determined by Patient Ordered By: Rob Cabrera [facility] Jose Ramon VTE Prophylaxis VTE prophylaxis: mechanical ordered and pharmacologic ordered
== END 2025-02-06 11:23 | disposition home or self-care (01) ==
LOC: ANHSURGERY 07:14 → ANHOB2 17:01
PROVIDERS: Anesthesiology; Visit Provider Obstetrics & Gynecology
PROC: (CPT 58552; principal; 2025-02-05 09:00)
DX: N87.1 Moderate cervical dysplasia (principal); N72 Inflammatory disease of cervix uteri; N88.8 Other specified noninflammatory disorders of cervix uteri; N84.0 Polyp of corpus uteri; D25.9 Leiomyoma of uterus, unspecified; N83.8 Other noninflammatory disorders of ovary, fallopian tube and broad ligament; D27.0 Benign neoplasm of right ovary; N73.6 Female pelvic peritoneal adhesions (postinfective); G89.18 Other acute postprocedural pain; I25.2 Old myocardial infarction; K21.9 Gastro-esophageal reflux disease without esophagitis; I10 Essential (primary) hypertension; E78.00 Pure hypercholesterolemia, unspecified; I25.10 Atherosclerotic heart disease of native coronary artery without angina pectoris; F17.210 Nicotine dependence, cigarettes, uncomplicated; Z79.82 Long term (current) use of aspirin; Z79.899 Other long term (current) drug therapy; Z98.890 Other specified postprocedural states; Z98.51 Tubal ligation status; Z90.49 Acquired absence of other specified parts of digestive tract; Z95.1 Presence of aortocoronary bypass graft; Z80.0 Family history of malignant neoplasm of digestive organs; Z82.49 Family history of ischemic heart disease and other diseases of the circulatory system
CPT/HCPCS: 58552; S2900; 36415; 80048; 86850; 86900; 86901; 88307; 99199; J0690; A9270; J0360; J0616; J1100; J1171; J1650; J1836; J1885; J2003; J2250; J2405; J2704; J3010; J7120